=== PATIENT | male | born 1975 | race Caucasian/White ===

== ENCOUNTER 2021-10-25 12:56 | Emergency (ER) | payer SELFPAY ==
[2021-10-25] MEDS ORDERED: Insulin Regular 300 UNITS/3 ML VIAL ONE (13:26)
[2021-10-25 13:57] LABS: Actual Bicarbonate (HCO3v) 25 mEq/L (22-28); Analyzer IN Cardio ER; Base Excess -0.8 mEq/L (-2.0 to +3.0); Calcium, Ionized (venous) 1.12 mmol/L (1.16-1.32); Chloride (VBG) 97 mmol/L (98-106); Hemoglobin (Hb) 12.4 g/dL (13.1-17.2); Potassium (VBG) 4.19 mmol/L (3.70-5.30); Sodium 129.6 mmol/L (133-146); pH (venous) 7.35 (7.32-7.43)
[2021-10-25 14:01] LABS: #Eosinphils 0.2 thou/uL (0.0-0.7); #Lymphocytes 2.3 thou/uL (1.20-3.40); #Monocytes 0.3 thou/uL (0.11-0.59); #Neutrophils 2.6 thou/uL (1.40-6.50); %Basophils 0.9 % (0.0-1.0); %Eosinophils 4.3 % (0.0-10.0); %Lymphocytes 42.4 % (21.0-51.0); %Monocytes 5.4 % (0.0-10.0); Hemoglobin 11.3 g/dL (14.0-18.0); Mean Corpuscular Volume 96.8 fL (78.0-98.0); Mean Platelet Volume 7.4 fL (7.4-10.4); Platelet Count 237 thou/uL (130-400); Red Blood Cell (RBC) Count 3.44 mill/uL (4.70-6.10); White Blood Cell (WBC) Count 5.5 thou/uL (4.8-10.8)
[2021-10-25 14:22] LABS: ALT (SGPT) 20 U/L (8-55); AST (SGOT) 11 U/L (5-34); Albumin 3.4 g/dL (3.5-5.0); Alkaline Phosphatase 42 U/L (40-110); Anion Gap 9 mmol/L (10-20); BUN (Urea Nitrogen) 12 mg/dL (8.9-20.6); Bilirubin, Total 0.6 mg/dL (0.2-1.2); Calc. Creatinine Clearance 0 mL/min (70-130); Calcium 8.4 mg/dL (7.8-10.44); Carbon Dioxide 26 mmol/L (22-29); Chloride 98 mmol/L (98-107); Estimated GFR 116; Globulin 2.2 g/dL (2.4-3.5); Glucose 293 mg/dL (70-105); Potassium 4.3 mmol/L (3.5-5.1); Protein, Total 5.6 g/dL (6.0-8.3); Sodium 129 mmol/L (136-145)
== END 2021-10-25 14:25 | disposition home or self-care (01) ==
LOC: ERS 12:56
DX: R19.7 Diarrhea, unspecified (principal); E11.65 Type 2 diabetes mellitus with hyperglycemia; I10 Essential (primary) hypertension; E78.5 Hyperlipidemia, unspecified; F17.210 Nicotine dependence, cigarettes, uncomplicated; Z79.4 Long term (current) use of insulin; Z79.899 Other long term (current) drug therapy
CPT/HCPCS: 36415; 36416; 80053; 82805; 85025; 96361; 96374; J1815

== ENCOUNTER 2022-02-07 14:59 | Inpatient (IN) | payer SELFPAY ==
[2022-02-07] MEDS ORDERED: Guaifenesin DM 100-10/5 ML UDCUP PO PRN (17:23)
[2022-02-07] MEDS ORDERED: Ondansetron PF 4 MG/2 ML Vial IVP PRN (17:23)
[2022-02-07] MEDS ORDERED: Acetaminophen 325 MG TAB PO PRN (17:23)
[2022-02-07 17:24] VITALS: BMI 14.7
[2022-02-07] MEDS ORDERED: Loperamide HCl 2 MG CAP PO PRN (18:42)
[2022-02-07] MEDS ORDERED: Dextrose 50% Abboject 50 ML SYRINGE SLOW IVP PRN (18:42)
[2022-02-07] MEDS ORDERED: Bisacodyl 5 MG TAB PO PRN (18:42)
[2022-02-07] MEDS ORDERED: Bisacodyl 10 MG SUPP PR PRN (18:42)
[2022-02-07] MEDS ORDERED: Senokot S 8.6-50 MG TAB PO PRN (18:42)
[2022-02-07] MEDS ORDERED: Dextrose 5% in Water 1,000 ML IV PRN (18:42)
[2022-02-07] MEDS ORDERED: hydrALAZINE 20 MG/ML VIAL SLOW IVP PRN (18:54)
[2022-02-07] MEDS: Famotidine 20 MG TAB PO SCH (21:05)
[2022-02-07] MEDS: Nicotine 21 MG PATCH TD SCH (21:05)
[2022-02-07] MEDS: Morphine 2 MG/ML VIAL SLOW IVP PRN (21:05)
[2022-02-07] MEDS: Sodium Chloride 0.9% 1,000 ML IV SCH (21:05)
[2022-02-07] MEDS: HumaLOG 300 UNITS/3 ML VIAL SC PRN (21:27)
[2022-02-08] MEDS: HYDROcodone/Acetaminophen 5/325 mg Tablet PO PRN ×3 (01:29→12:26)
[2022-02-08 01:40] LABS: Bilirubin Negative (Negative); Blood, Urine Trace (Negative); Clarity Clear (Clear); Glucose, Urine (Dipstick) Greater than 1000 mg/dL (Negative); Ketone, Urine 20 mg/dL (Negative); Leukocyte 500 Leu/uL (Negative); Nitrite 2+ (Negative); Protein, Urine (Dipstick) 20 mg/dL (Neg-Trace); Specific Gravity, Urine 1.047 (1.002-1.036); Squamous Epithelial None Seen HPF (0-3); Urobilinogen 3 mg/dL (Less than 2)
[2022-02-08 01:44] LABS: Bacteria/HPF 2+ HPF (None Seen)
[2022-02-08 01:46] LABS: Urine Culture Reflex Yes Yes
[2022-02-08] MEDS: Ondansetron PF 4 MG/2 ML Vial IVP PRN (04:17)
[2022-02-08] MEDS: Morphine 2 MG/ML VIAL SLOW IVP PRN (04:17)
[2022-02-08 05:36] LABS: #Basophils 0.1 thou/uL (0.0-0.2); #Eosinphils 0.1 thou/uL (0.0-0.7); #Lymphocytes 1.3 thou/uL (1.20-3.40); #Neutrophils 17.1 thou/uL (1.40-6.50); %Basophils 0.3 % (0.0-1.0); %Eosinophils 0.5 % (0.0-10.0); %Lymphocytes 6.8 % (21.0-51.0); %Monocytes 4.9 % (0.0-10.0); %Neutrophils 87.5 % (42.0-75.0); Hemoglobin 10.8 g/dL (14.0-18.0); Mean Corpuscular HGB CONC 31.7 g/dL (32.0-36.0); Mean Corpuscular Hemoglobin 30.8 pg (27.0-31.0); Mean Corpuscular Volume 97.3 fL (78.0-98.0); Platelet Count 501 thou/uL (130-400); RBC Distribution Width 11.9 % (11.5-14.5); Red Blood Cell (RBC) Count 3.49 mill/uL (4.70-6.10); White Blood Cell (WBC) Count 19.5 thou/uL (4.8-10.8)
[2022-02-08 05:39] LABS: INR-International Normal Ratio 1.2; PTT 46.2 sec (22.9-36.1); Prothrombin Time 15.5 sec (12.0-14.7)
[2022-02-08 05:49] LABS: Anion Gap 11 mmol/L (10-20); BUN (Urea Nitrogen) 7 mg/dL (8.9-20.6); Calc. Creatinine Clearance 108 mL/min (70-130); Calcium 8.8 mg/dL (7.8-10.44); Carbon Dioxide 30 mmol/L (22-29); Chloride 95 mmol/L (98-107); Estimated GFR 126; Glucose 160 mg/dL (70-105); Magnesium 1.5 mg/dL (1.6-2.6); Potassium 4.1 mmol/L (3.5-5.1); Sodium 132 mmol/L (136-145)
[2022-02-08 05:53] LABS: Hemoglobin A1c Greater than 14.0 % (4.0-6.0)
[2022-02-08] MEDS: Famotidine 20 MG TAB PO SCH ×2 (08:39→20:06)
[2022-02-08] MEDS: Enoxaparin Sodium 40 MG/0.4 ML SYRINGE SC SCH (08:39)
[2022-02-08] MEDS ORDERED: Magnesium 2 GM/50 ML(in water) 2 GM in Premix Bag 1 BAG IVPB SCH (09:00)
[2022-02-08 13:21] LABS: SARS-CoV-2 NAA Rapid Test Not Detected (NotDetected)
[2022-02-08] MEDS ORDERED: Magnevist 469MG/ML 20 ML VIAL ONE ×2 (13:23)
[2022-02-08] MEDS: Sodium Chloride 0.9% 1,000 ML IV SCH (16:12)
[2022-02-08] MEDS: glyBURIDE 5 MG TAB PO SCH (16:12)
[2022-02-08] MEDS: Gabapentin 300 MG CAP PO SCH (20:06)
[2022-02-08] MEDS: Nicotine 21 MG PATCH TD SCH (20:06)
[2022-02-09] MEDS: HYDROcodone/Acetaminophen 5/325 mg Tablet PO PRN ×2 (04:00→20:41)
[2022-02-09] MEDS: HumaLOG 300 UNITS/3 ML VIAL SC PRN ×3 (05:46→15:58)
[2022-02-09] MEDS: glyBURIDE 5 MG TAB PO SCH ×2 (07:25→15:57)
[2022-02-09] MEDS: Enoxaparin Sodium 40 MG/0.4 ML SYRINGE SC SCH (08:40)
[2022-02-09] MEDS: Famotidine 20 MG TAB PO SCH ×2 (08:40→20:42)
[2022-02-09] MEDS: Sodium Chloride 0.9% 1,000 ML IV SCH (08:41)
[2022-02-09] MEDS ORDERED: Phytonadione 5 MG TAB PO SCH (09:30)
[2022-02-09 09:48] LABS: ALT (SGPT) 18 U/L (8-55); AST (SGOT) 32 U/L (5-34); Albumin 2.3 g/dL (3.5-5.0); Alkaline Phosphatase 159 U/L (40-110); Anion Gap 11 mmol/L (10-20); BUN (Urea Nitrogen) 7 mg/dL (8.9-20.6); Bilirubin, Total 0.3 mg/dL (0.2-1.2); Calc. Creatinine Clearance 98 mL/min (70-130); Calcium 8.2 mg/dL (7.8-10.44); Carbon Dioxide 29 mmol/L (22-29); Chloride 94 mmol/L (98-107); Estimated GFR 122; Globulin 3.9 g/dL (2.4-3.5); Glucose 240 mg/dL (70-105); Potassium 4.1 mmol/L (3.5-5.1); Protein, Total 6.2 g/dL (6.0-8.3); Sodium 130 mmol/L (136-145)
[2022-02-09] MEDS: Cefepime 1 GM in Sodium Chloride 0.9% 100 ML IVPB SCH ×2 (10:14→22:23)
[2022-02-09 12:00] LABS: Hemoglobin 9.8 g/dL (14.0-18.0); Lymphocytes 6 % (21-51); MDiff Complete? YES; Mean Corpuscular HGB CONC 30.2 g/dL (32.0-36.0); Mean Corpuscular Hemoglobin 29.5 pg (27.0-31.0); Mean Corpuscular Volume 97.7 fL (78.0-98.0); Mean Platelet Volume 7.2 fL (7.4-10.4); Monocytes 2 % (0-10); Neutrophil 92 % (42-75); Platelet Count 507 thou/uL (130-400); Platelet Morphology Comment Appears Increased; RBC Distribution Width 11.9 % (11.5-14.5); RBC Morphology Normal; Red Blood Cell (RBC) Count 3.33 mill/uL (4.70-6.10); White Blood Cell (WBC) Count 22.5 thou/uL (4.8-10.8)
[2022-02-09] MEDS ORDERED: Heparin 1,000 UNITS/ML VIAL ONE (12:15)
[2022-02-09] MEDS: traMADol HCl 50 MG TAB PO PRN (14:26)
[2022-02-09] MEDS: Ondansetron PF 4 MG/2 ML Vial IVP PRN (19:35)
[2022-02-09] MEDS: Nicotine 21 MG PATCH TD SCH (19:36)
[2022-02-09] MEDS: Gabapentin 300 MG CAP PO SCH (20:40)
[2022-02-09] MEDS ORDERED: Vancomycin 1 GM in Premix Bag 1 BAG IVPB SCH (21:00)
[2022-02-09] MEDS: Vancomycin HCl 750 MG in Sodium Chloride 0.9% 250 ML 250 ML IVPB SCH (21:09)
[2022-02-10] MEDS: Morphine 2 MG/ML VIAL SLOW IVP PRN (04:29)
[2022-02-10] MEDS: Sodium Chloride 0.9% 1,000 ML IV SCH ×2 (04:33→20:15)
[2022-02-10] MEDS: glyBURIDE 5 MG TAB PO SCH ×2 (07:47→15:49)
[2022-02-10 09:09] LABS: #Basophils 0.1 thou/uL (0.0-0.2); #Eosinphils 0.1 thou/uL (0.0-0.7); #Lymphocytes 1.2 thou/uL (1.20-3.40); #Monocytes 1.2 thou/uL (0.11-0.59); #Neutrophils 20.9 thou/uL (1.40-6.50); %Basophils 0.3 % (0.0-1.0); %Eosinophils 0.4 % (0.0-10.0); %Lymphocytes 5.2 % (21.0-51.0); %Monocytes 4.9 % (0.0-10.0); %Neutrophils 89.2 % (42.0-75.0); Mean Corpuscular HGB CONC 31.7 g/dL (32.0-36.0); Mean Corpuscular Hemoglobin 31.1 pg (27.0-31.0); Platelet Count 478 thou/uL (130-400); RBC Distribution Width 11.8 % (11.5-14.5); Red Blood Cell (RBC) Count 3.23 mill/uL (4.70-6.10); White Blood Cell (WBC) Count 23.4 thou/uL (4.8-10.8)
[2022-02-10 09:28] LABS: ALT (SGPT) 18 U/L (8-55); AST (SGOT) 21 U/L (5-34); Albumin 2.2 g/dL (3.5-5.0); Alkaline Phosphatase 144 U/L (40-110); Anion Gap 9 mmol/L (10-20); BUN (Urea Nitrogen) 8 mg/dL (8.9-20.6); Bilirubin, Total 0.5 mg/dL (0.2-1.2); Calc. Creatinine Clearance 104 mL/min (70-130); Calcium 8.3 mg/dL (7.8-10.44); Carbon Dioxide 31 mmol/L (22-29); Chloride 96 mmol/L (98-107); Estimated GFR 124; Globulin 3.9 g/dL (2.4-3.5); Glucose 126 mg/dL (70-105); Potassium 4.2 mmol/L (3.5-5.1); Protein, Total 6.1 g/dL (6.0-8.3); Sodium 132 mmol/L (136-145)
[2022-02-10] MEDS ORDERED: Lidocaine 1% (PF) 30 ML VIAL FS SCH (10:00)
[2022-02-10] MEDS ORDERED: EPINEPHrine 1 MG/10 ML Abboject SYRINGE FS SCH (10:15)
[2022-02-10] MEDS: Vancomycin HCl 750 MG in Sodium Chloride 0.9% 250 ML 250 ML IVPB SCH (10:30)
[2022-02-10] MEDS: Cefepime 1 GM in Sodium Chloride 0.9% 100 ML IVPB SCH (11:32)
[2022-02-10] MEDS: Famotidine 20 MG TAB PO SCH ×2 (14:07→20:14)
[2022-02-10] MEDS: Enoxaparin Sodium 30 MG/0.3 ML SYRINGE SC SCH (14:07)
[2022-02-10] MEDS: HumaLOG 300 UNITS/3 ML VIAL SC PRN (16:35)
[2022-02-10] MEDS: HYDROcodone/Acetaminophen 5/325 mg Tablet PO PRN ×2 (17:51→22:00)
[2022-02-10] MEDS: Gabapentin 300 MG CAP PO SCH (20:13)
[2022-02-10] MEDS: Nicotine 21 MG PATCH TD SCH (20:14)
[2022-02-10] MEDS: CEFAZOLIN 2 GM in Sodium Chloride 0.9% 100 ML IVPB SCH (22:01)
[2022-02-10 23:32] LABS: HIV (1/2) Antibody/Antigen Non-Reactive (NonReactive); HIV 1/2 INDEX 0.08 S/CO (<1.00)
[2022-02-11 00:35] LABS: Campy jejuni + coli by PCR Negative (Negative); STEC Shiga Toxin 1+2 Negative (Negative); Salmonella spp. by PCR Negative (Negative); Shigella spp + EIEC by PCR Negative (Negative)
[2022-02-11 05:28] LABS: Band 31 % (5-11); Hemoglobin 9.7 g/dL (14.0-18.0); Hypochromia SLIGHT = 6-15 cells (100X) (0-5/hpf); Lymphocytes 8 % (21-51); MDiff Complete? YES; Mean Corpuscular Hemoglobin 30.6 pg (27.0-31.0); Mean Corpuscular Volume 98.7 fL (78.0-98.0); Mean Platelet Volume 7.3 fL (7.4-10.4); Monocytes 4 % (0-10); Neutrophil 56 % (42-75); Platelet Count 514 thou/uL (130-400); Platelet Morphology Comment Appears Adequate; RBC Distribution Width 11.9 % (11.5-14.5); Reactive Lymphocytes 1 % (0-10); Red Blood Cell (RBC) Count 3.17 mill/uL (4.70-6.10); White Blood Cell (WBC) Count 24.1 thou/uL (4.8-10.8)
[2022-02-11 05:36] LABS: Anion Gap 11 mmol/L (10-20); BUN (Urea Nitrogen) 12 mg/dL (8.9-20.6); Calc. Creatinine Clearance 87 mL/min (70-130); Carbon Dioxide 28 mmol/L (22-29); Chloride 95 mmol/L (98-107); Estimated GFR 118; Glucose 345 mg/dL (70-105); Potassium 4.5 mmol/L (3.5-5.1); Sodium 129 mmol/L (136-145)
[2022-02-11] MEDS: CEFAZOLIN 2 GM in Sodium Chloride 0.9% 100 ML IVPB SCH ×3 (05:45→21:32)
[2022-02-11] MEDS: HYDROcodone/Acetaminophen 5/325 mg Tablet PO PRN ×2 (05:47→20:31)
[2022-02-11] MEDS: Sodium Chloride 0.9% 1,000 ML IV SCH ×3 (05:49→19:07)
[2022-02-11] MEDS: HumaLOG 300 UNITS/3 ML VIAL SC PRN ×3 (06:20→21:32)
[2022-02-11] MEDS: Famotidine 20 MG TAB PO SCH ×2 (08:14→20:30)
[2022-02-11] MEDS: Enoxaparin Sodium 30 MG/0.3 ML SYRINGE SC SCH (08:14)
[2022-02-11] MEDS: glyBURIDE 5 MG TAB PO SCH ×2 (08:14→16:42)
[2022-02-11 08:34] LABS: Vancomycin, Trough 2.2 ug/mL
[2022-02-11] MEDS ORDERED: Bupivacaine 0.25% HCL 30 ML VIAL ONE ×2 (12:20→13:47)
[2022-02-11] MEDS ORDERED: EPINEPHrine 1 MG/ML AMP ONE ×2 (12:20→13:47)
[2022-02-11] MEDS ORDERED: fentaNYL Citrate/PF 100 MCG/2 ML SYRINGE ONE (14:00)
[2022-02-11] MEDS ORDERED: CEFAZOLIN 2 GM VIAL ONE (14:02)
[2022-02-11] MEDS ORDERED: Sodium Chloride 0.9% 100 ML ONE (14:02)
[2022-02-11] MEDS ORDERED: PHENYLEPHRINE-NS 100 MCG/ML 10 ML SYRINGE ONE (14:19)
[2022-02-11] MEDS ORDERED: PROPOFOL 200 MG/20 ML VIAL ONE (14:19)
[2022-02-11] MEDS ORDERED: HYDROmorphone 2 MG/ML VIAL SLOW IVP PRN (14:43)
[2022-02-11] MEDS ORDERED: Ketorolac Tromethamine 30 MG/ML VIAL IVP PRN (14:43)
[2022-02-11] MEDS ORDERED: Promethazine HCl 25 MG/ML VIAL IVPB PRN (14:43)
[2022-02-11] MEDS ORDERED: Promethazine HCl 25 MG/ML VIAL IM PRN (14:43)
[2022-02-11] MEDS ORDERED: Ondansetron HCl/PF 4 MG/2 ML Vial IVP PRN (14:43)
[2022-02-11] MEDS ORDERED: Fentanyl 100 MCG/2 ML VIAL ONE ×2 (15:02→15:36)
[2022-02-11] MEDS: Morphine 2 MG/ML VIAL SLOW IVP PRN (16:49)
[2022-02-11] MEDS: Nicotine 21 MG PATCH TD SCH (20:30)
[2022-02-11] MEDS: Gabapentin 300 MG CAP PO SCH (20:31)
[2022-02-12 04:54] LABS: #Eosinphils 0.1 thou/uL (0.0-0.7); #Lymphocytes 1.7 thou/uL (1.20-3.40); #Monocytes 1.1 thou/uL (0.11-0.59); #Neutrophils 14.9 thou/uL (1.40-6.50); %Basophils 0.3 % (0.0-1.0); %Eosinophils 0.6 % (0.0-10.0); %Lymphocytes 9.5 % (21.0-51.0); %Monocytes 6.3 % (0.0-10.0); %Neutrophils 83.3 % (42.0-75.0); Hemoglobin 9.8 g/dL (14.0-18.0); Mean Corpuscular HGB CONC 31.1 g/dL (32.0-36.0); Mean Corpuscular Hemoglobin 30.2 pg (27.0-31.0); Mean Corpuscular Volume 97.1 fL (78.0-98.0); Platelet Count 567 thou/uL (130-400); RBC Distribution Width 11.8 % (11.5-14.5); Red Blood Cell (RBC) Count 3.23 mill/uL (4.70-6.10); White Blood Cell (WBC) Count 17.9 thou/uL (4.8-10.8)
[2022-02-12] MEDS: CEFAZOLIN 2 GM in Sodium Chloride 0.9% 100 ML IVPB SCH ×3 (05:17→20:58)
[2022-02-12] MEDS: Sodium Chloride 0.9% 1,000 ML IV SCH ×2 (05:17→16:52)
[2022-02-12 05:56] LABS: Anion Gap 9 mmol/L (10-20); BUN (Urea Nitrogen) 9 mg/dL (8.9-20.6); Calc. Creatinine Clearance 102 mL/min (70-130); Calcium 7.8 mg/dL (7.8-10.44); Carbon Dioxide 29 mmol/L (22-29); Chloride 96 mmol/L (98-107); Estimated GFR 124; Glucose 213 mg/dL (70-105); Potassium 4.3 mmol/L (3.5-5.1); Sodium 130 mmol/L (136-145)
[2022-02-12] MEDS: HumaLOG 300 UNITS/3 ML VIAL SC PRN ×3 (06:11→20:55)
[2022-02-12] MEDS: glyBURIDE 5 MG TAB PO SCH ×2 (08:07→16:49)
[2022-02-12] MEDS: Enoxaparin Sodium 30 MG/0.3 ML SYRINGE SC SCH (08:08)
[2022-02-12] MEDS: Famotidine 20 MG TAB PO SCH ×2 (08:08→20:49)
[2022-02-12] MEDS: Morphine 2 MG/ML VIAL SLOW IVP PRN (09:22)
[2022-02-12] MEDS: HYDROcodone/Acetaminophen 5/325 mg Tablet PO PRN ×2 (11:15→20:50)
[2022-02-12] MEDS: traMADol HCl 50 MG TAB PO PRN (12:54)
[2022-02-12] MEDS: Loperamide HCl 2 MG CAP PO PRN (18:56)
[2022-02-12] MEDS: Gabapentin 300 MG CAP PO SCH (20:49)
[2022-02-12] MEDS: Nicotine 21 MG PATCH TD SCH (20:51)
[2022-02-13] MEDS: Sodium Chloride 0.9% 1,000 ML IV SCH ×3 (04:42→20:08)
[2022-02-13] MEDS: CEFAZOLIN 2 GM in Sodium Chloride 0.9% 100 ML IVPB SCH ×3 (05:28→21:59)
[2022-02-13 05:34] LABS: #Eosinphils 0.1 thou/uL (0.0-0.7); #Monocytes 1.3 thou/uL (0.11-0.59); #Neutrophils 12.1 thou/uL (1.40-6.50); %Basophils 0.1 % (0.0-1.0); %Eosinophils 0.9 % (0.0-10.0); %Lymphocytes 12.9 % (21.0-51.0); %Monocytes 8.2 % (0.0-10.0); %Neutrophils 77.9 % (42.0-75.0); Hemoglobin 9.4 g/dL (14.0-18.0); Mean Corpuscular HGB CONC 31.9 g/dL (32.0-36.0); Mean Corpuscular Hemoglobin 30.7 pg (27.0-31.0); Mean Corpuscular Volume 96.1 fL (78.0-98.0); Mean Platelet Volume 6.8 fL (7.4-10.4); Platelet Count 547 thou/uL (130-400); RBC Distribution Width 11.7 % (11.5-14.5); Red Blood Cell (RBC) Count 3.06 mill/uL (4.70-6.10); White Blood Cell (WBC) Count 15.5 thou/uL (4.8-10.8)
[2022-02-13] MEDS: Famotidine 20 MG TAB PO SCH ×2 (08:22→20:07)
[2022-02-13] MEDS: Enoxaparin Sodium 30 MG/0.3 ML SYRINGE SC SCH (08:22)
[2022-02-13] MEDS: glyBURIDE 5 MG TAB PO SCH ×2 (08:22→16:11)
[2022-02-13 09:58] LABS: Anion Gap 10 mmol/L (10-20); BUN (Urea Nitrogen) 6 mg/dL (8.9-20.6); Calc. Creatinine Clearance 115 mL/min (70-130); Calcium 7.8 mg/dL (7.8-10.44); Carbon Dioxide 29 mmol/L (22-29); Chloride 98 mmol/L (98-107); Estimated GFR 128; Glucose 115 mg/dL (70-105); Sodium 133 mmol/L (136-145)
[2022-02-13] MEDS: traMADol HCl 50 MG TAB PO PRN ×2 (13:35→18:16)
[2022-02-13] MEDS ORDERED: Lidocaine 1% (PF) 30 ML VIAL IJ SCH (13:45)
[2022-02-13] MEDS ORDERED: Bupivacaine PF 0.5% 30 ML VIAL FS SCH (13:45)
[2022-02-13] MEDS ORDERED: EPINEPHrine 1 MG/ML AMP IVP SCH (13:45)
[2022-02-13] MEDS ORDERED: EPINEPHrine 1 MG/10 ML Abboject SYRINGE IVP SCH (14:00)
[2022-02-13] MEDS: Gabapentin 300 MG CAP PO SCH (20:07)
[2022-02-13] MEDS: Nicotine 21 MG PATCH TD SCH (20:07)
[2022-02-13] MEDS: Morphine 2 MG/ML VIAL SLOW IVP PRN (20:13)
[2022-02-13] MEDS: HumaLOG 300 UNITS/3 ML VIAL SC PRN (21:58)
[2022-02-14] MEDS: CEFAZOLIN 2 GM in Sodium Chloride 0.9% 100 ML IVPB SCH ×3 (05:09→22:35)
[2022-02-14 05:53] LABS: #Eosinphils 0.1 thou/uL (0.0-0.7); #Lymphocytes 2.6 thou/uL (1.20-3.40); #Monocytes 1.1 thou/uL (0.11-0.59); #Neutrophils 10.9 thou/uL (1.40-6.50); %Basophils 0.2 % (0.0-1.0); %Eosinophils 0.8 % (0.0-10.0); %Lymphocytes 17.7 % (21.0-51.0); %Monocytes 7.7 % (0.0-10.0); %Neutrophils 73.7 % (42.0-75.0); Hemoglobin 9.2 g/dL (14.0-18.0); Mean Corpuscular HGB CONC 31.5 g/dL (32.0-36.0); Mean Corpuscular Hemoglobin 30.7 pg (27.0-31.0); Mean Corpuscular Volume 97.4 fL (78.0-98.0); Platelet Count 635 thou/uL (130-400); RBC Distribution Width 11.9 % (11.5-14.5); White Blood Cell (WBC) Count 14.8 thou/uL (4.8-10.8)
[2022-02-14 06:13] LABS: Anion Gap 6 mmol/L (10-20); BUN (Urea Nitrogen) 12 mg/dL (8.9-20.6); Calc. Creatinine Clearance 97 mL/min (70-130); Calcium 7.7 mg/dL (7.8-10.44); Carbon Dioxide 30 mmol/L (22-29); Chloride 99 mmol/L (98-107); Estimated GFR 122; Glucose 286 mg/dL (70-105); Potassium 4.4 mmol/L (3.5-5.1); Sodium 131 mmol/L (136-145)
[2022-02-14] MEDS ORDERED: PROPOFOL 200 MG/20 ML VIAL ONE (08:29)
[2022-02-14 09:13] LABS: QuantiFERON-TB Gold Plus Indeterminate (Negative)
[2022-02-14] MEDS: traMADol HCl 50 MG TAB PO PRN (09:48)
[2022-02-14] MEDS: Famotidine 20 MG TAB PO SCH ×2 (09:48→20:18)
[2022-02-14] MEDS: glyBURIDE 5 MG TAB PO SCH ×2 (09:48→16:16)
[2022-02-14] MEDS: Enoxaparin Sodium 30 MG/0.3 ML SYRINGE SC SCH (09:49)
[2022-02-14] MEDS: Sodium Chloride 0.9% 1,000 ML IV SCH ×2 (09:50→20:17)
[2022-02-14] MEDS: HumaLOG 300 UNITS/3 ML VIAL SC PRN ×3 (11:18→20:27)
[2022-02-14] MEDS: Nicotine 21 MG PATCH TD SCH (20:18)
[2022-02-14] MEDS: Gabapentin 300 MG CAP PO SCH (20:18)
[2022-02-15] MEDS: Sodium Chloride 0.9% 1,000 ML IV SCH ×3 (05:43→20:07)
[2022-02-15] MEDS: CEFAZOLIN 2 GM in Sodium Chloride 0.9% 100 ML IVPB SCH ×3 (05:43→21:27)
[2022-02-15] MEDS: HumaLOG 300 UNITS/3 ML VIAL SC PRN ×3 (05:44→16:17)
[2022-02-15 05:49] LABS: #Eosinphils 0.1 thou/uL (0.0-0.7); #Monocytes 0.9 thou/uL (0.11-0.59); #Neutrophils 10.5 thou/uL (1.40-6.50); %Basophils 0.3 % (0.0-1.0); %Monocytes 6.6 % (0.0-10.0); %Neutrophils 77.3 % (42.0-75.0); Hemoglobin 9.3 g/dL (14.0-18.0); Mean Corpuscular HGB CONC 31.4 g/dL (32.0-36.0); Mean Corpuscular Hemoglobin 30.3 pg (27.0-31.0); Mean Corpuscular Volume 96.5 fL (78.0-98.0); Mean Platelet Volume 6.6 fL (7.4-10.4); Platelet Count 722 thou/uL (130-400); RBC Distribution Width 11.9 % (11.5-14.5); Red Blood Cell (RBC) Count 3.08 mill/uL (4.70-6.10); White Blood Cell (WBC) Count 13.5 thou/uL (4.8-10.8)
[2022-02-15 06:12] LABS: Anion Gap 6 mmol/L (10-20); BUN (Urea Nitrogen) 8 mg/dL (8.9-20.6); Calc. Creatinine Clearance 104 mL/min (70-130); Calcium 7.7 mg/dL (7.8-10.44); Carbon Dioxide 29 mmol/L (22-29); Chloride 97 mmol/L (98-107); Estimated GFR 124; Glucose 347 mg/dL (70-105); Potassium 4.2 mmol/L (3.5-5.1); Sodium 128 mmol/L (136-145)
[2022-02-15 06:30] LABS: Hep C IgG Ab Non-Reactive (NonReactive); Hep C Index 0.27 S/CO (0-0.79)
[2022-02-15] MEDS: Famotidine 20 MG TAB PO SCH ×2 (08:27→20:07)
[2022-02-15] MEDS: glyBURIDE 5 MG TAB PO SCH ×2 (08:27→16:16)
[2022-02-15] MEDS: Enoxaparin Sodium 30 MG/0.3 ML SYRINGE SC SCH (08:27)
[2022-02-15] MEDS: HYDROcodone/Acetaminophen 5/325 mg Tablet PO PRN ×2 (08:34→23:14)
[2022-02-15] MEDS: Loperamide HCl 2 MG CAP PO PRN ×4 (14:32→23:14)
[2022-02-15] MEDS: traMADol HCl 50 MG TAB PO PRN (16:16)
[2022-02-15] MEDS: Nicotine 21 MG PATCH TD SCH (20:06)
[2022-02-15] MEDS: Gabapentin 300 MG CAP PO SCH (20:07)
[2022-02-16] MEDS: Saccharomyces boulardii 250 MG CAP PO SCH ×2 (03:18→09:01)
[2022-02-16] MEDS: CEFAZOLIN 2 GM in Sodium Chloride 0.9% 100 ML IVPB SCH ×3 (05:16→21:28)
[2022-02-16] MEDS: Sodium Chloride 0.9% 1,000 ML IV SCH ×2 (05:17→16:03)
[2022-02-16] MEDS: HumaLOG 300 UNITS/3 ML VIAL SC PRN ×3 (05:20→18:08)
[2022-02-16] MEDS: glyBURIDE 5 MG TAB PO SCH ×2 (09:00→16:02)
[2022-02-16] MEDS: Famotidine 20 MG TAB PO SCH ×2 (09:01→21:28)
[2022-02-16] MEDS: Enoxaparin Sodium 30 MG/0.3 ML SYRINGE SC SCH (09:01)
[2022-02-16 09:39] LABS: #Eosinphils 0.1 thou/uL (0.0-0.7); #Monocytes 0.7 thou/uL (0.11-0.59); #Neutrophils 7.9 thou/uL (1.40-6.50); %Basophils 0.4 % (0.0-1.0); %Eosinophils 1.2 % (0.0-10.0); %Lymphocytes 18.2 % (21.0-51.0); %Monocytes 6.3 % (0.0-10.0); %Neutrophils 73.9 % (42.0-75.0); Hemoglobin 9.7 g/dL (14.0-18.0); Mean Corpuscular Hemoglobin 30.1 pg (27.0-31.0); Mean Corpuscular Volume 96.8 fL (78.0-98.0); Mean Platelet Volume 6.2 fL (7.4-10.4); Platelet Count 731 thou/uL (130-400); RBC Distribution Width 11.9 % (11.5-14.5); Red Blood Cell (RBC) Count 3.21 mill/uL (4.70-6.10); White Blood Cell (WBC) Count 10.7 thou/uL (4.8-10.8)
[2022-02-16 10:02] LABS: Anion Gap 8 mmol/L (10-20); BUN (Urea Nitrogen) Less than 4 mg/dL (8.9-20.6); Calc. Creatinine Clearance 106 mL/min (70-130); Calcium 7.8 mg/dL (7.8-10.44); Carbon Dioxide 33 mmol/L (22-29); Chloride 96 mmol/L (98-107); Estimated GFR 125; Glucose 260 mg/dL (70-105); Potassium 3.9 mmol/L (3.5-5.1); Sodium 133 mmol/L (136-145)
[2022-02-16] MEDS: Loperamide HCl 2 MG CAP PO PRN ×6 (10:13→21:32)
[2022-02-16] MEDS: Morphine 2 MG/ML VIAL SLOW IVP PRN (10:13)
[2022-02-16] MEDS: Gabapentin 300 MG CAP PO SCH (21:28)
[2022-02-16] MEDS: Nicotine 21 MG PATCH TD SCH (21:28)
[2022-02-16] MEDS ORDERED: Melatonin 3 MG TAB PO SCH (23:00)
[2022-02-17] MEDS: Morphine 2 MG/ML VIAL SLOW IVP PRN ×2 (00:15→11:32)
[2022-02-17] MEDS: Sodium Chloride 0.9% 1,000 ML IV SCH ×3 (02:00→22:42)
[2022-02-17] MEDS: CEFAZOLIN 2 GM in Sodium Chloride 0.9% 100 ML IVPB SCH ×3 (05:11→22:42)
[2022-02-17] MEDS: HumaLOG 300 UNITS/3 ML VIAL SC PRN ×3 (05:13→16:22)
[2022-02-17 06:02] LABS: #Basophils 0.1 thou/uL (0.0-0.2); #Eosinphils 0.1 thou/uL (0.0-0.7); #Lymphocytes 2.2 thou/uL (1.20-3.40); #Monocytes 0.8 thou/uL (0.11-0.59); #Neutrophils 9.1 thou/uL (1.40-6.50); %Basophils 0.8 % (0.0-1.0); %Eosinophils 0.9 % (0.0-10.0); %Lymphocytes 17.6 % (21.0-51.0); %Monocytes 6.5 % (0.0-10.0); %Neutrophils 74.2 % (42.0-75.0); Hemoglobin 8.8 g/dL (14.0-18.0); Mean Corpuscular HGB CONC 30.9 g/dL (32.0-36.0); Mean Corpuscular Hemoglobin 29.8 pg (27.0-31.0); Mean Corpuscular Volume 96.5 fL (78.0-98.0); Mean Platelet Volume 6.7 fL (7.4-10.4); Platelet Count 751 thou/uL (130-400); RBC Distribution Width 12.2 % (11.5-14.5); Red Blood Cell (RBC) Count 2.94 mill/uL (4.70-6.10); White Blood Cell (WBC) Count 12.2 thou/uL (4.8-10.8)
[2022-02-17 06:20] LABS: Anion Gap 9 mmol/L (10-20); BUN (Urea Nitrogen) Less than 4 mg/dL (8.9-20.6); Calc. Creatinine Clearance 102 mL/min (70-130); Carbon Dioxide 29 mmol/L (22-29); Chloride 99 mmol/L (98-107); Estimated GFR 124; Glucose 380 mg/dL (70-105); Potassium 3.9 mmol/L (3.5-5.1); Sodium 133 mmol/L (136-145)
[2022-02-17] MEDS: glyBURIDE 5 MG TAB PO SCH ×2 (07:37→16:22)
[2022-02-17] MEDS: Enoxaparin Sodium 30 MG/0.3 ML SYRINGE SC SCH (09:07)
[2022-02-17] MEDS: Saccharomyces boulardii 250 MG CAP PO SCH (09:07)
[2022-02-17] MEDS: Famotidine 20 MG TAB PO SCH ×2 (09:07→20:29)
[2022-02-17] MEDS: traMADol HCl 50 MG TAB PO PRN ×2 (09:12→18:01)
[2022-02-17 15:14] LABS: Alb/Glob Ratio 0.5 (0.7-1.7); Albumin 1.7 g/dL (2.9-4.4); Alpha-1-Globulin 0.4 g/dL (0.0-0.4); Alpha-2-Globulin 0.8 g/dL (0.4-1.0); Beta-Globulin 0.9 g/dL (0.7-1.3); Gamma-Globulin 1.8 g/dL (0.4-1.8); IgA - Total IgA (Sendout) 498 mg/dL (90-386); Immunoglobulin - G (Sendout) 2048 mg/dL (603-1613); Immunoglobulin - M (Sendout) 42 mg/dL (20-172); M-Spike Not Observed g/dL (Not Observed)
[2022-02-17] MEDS: Gabapentin 300 MG CAP PO SCH (20:29)
[2022-02-17] MEDS: Nicotine 21 MG PATCH TD SCH (20:30)
[2022-02-17] MEDS: HYDROcodone/Acetaminophen 5/325 mg Tablet PO PRN (20:35)
[2022-02-17] MEDS: Loperamide HCl 2 MG CAP PO PRN (20:35)
[2022-02-18] MEDS: CEFAZOLIN 2 GM in Sodium Chloride 0.9% 100 ML IVPB SCH ×3 (05:32→21:31)
[2022-02-18 05:42] LABS: Anion Gap 8 mmol/L (10-20); BUN (Urea Nitrogen) Less than 4 mg/dL (8.9-20.6); Calc. Creatinine Clearance 110 mL/min (70-130); Carbon Dioxide 28 mmol/L (22-29); Chloride 100 mmol/L (98-107); Potassium 3.9 mmol/L (3.5-5.1); Sodium 132 mmol/L (136-145)
[2022-02-18 05:43] LABS: Calcium 7.9 mg/dL (7.8-10.44); Estimated GFR 127; Glucose 228 mg/dL (70-105)
[2022-02-18] MEDS: HumaLOG 300 UNITS/3 ML VIAL SC PRN ×4 (06:06→21:31)
[2022-02-18 07:03] LABS: #Basophils 0.1 thou/uL (0.0-0.2); #Eosinphils 0.1 thou/uL (0.0-0.7); #Lymphocytes 2.2 thou/uL (1.20-3.40); #Monocytes 0.7 thou/uL (0.11-0.59); #Neutrophils 7.7 thou/uL (1.40-6.50); %Basophils 0.8 % (0.0-1.0); %Eosinophils 1.1 % (0.0-10.0); %Lymphocytes 20.6 % (21.0-51.0); %Monocytes 6.1 % (0.0-10.0); %Neutrophils 71.3 % (42.0-75.0); Hemoglobin 9.4 g/dL (14.0-18.0); Mean Corpuscular HGB CONC 31.8 g/dL (32.0-36.0); Mean Corpuscular Hemoglobin 30.6 pg (27.0-31.0); Mean Corpuscular Volume 96.3 fl (78.0-98.0); Mean Platelet Volume 6.4 fL (7.4-10.4); Platelet Count 718 thou/uL (130-400); RBC Distribution Width 12.7 % (11.5-14.5); Red Blood Cell (RBC) Count 3.05 mill/uL (4.70-6.10); White Blood Cell (WBC) Count 10.7 thou/uL (4.8-10.8)
[2022-02-18] MEDS ORDERED: traMADol HCl 50 MG TAB PO PRN (08:35)
[2022-02-18] MEDS: Enoxaparin Sodium 30 MG/0.3 ML SYRINGE SC SCH (08:55)
[2022-02-18] MEDS: glyBURIDE 5 MG TAB PO SCH ×2 (08:55→17:34)
[2022-02-18] MEDS: Famotidine 20 MG TAB PO SCH ×2 (08:55→21:30)
[2022-02-18] MEDS: Saccharomyces boulardii 250 MG CAP PO SCH (08:55)
[2022-02-18] MEDS: Sodium Chloride 0.9% 1,000 ML IV SCH ×2 (08:55→17:33)
[2022-02-18] MEDS: HYDROcodone/Acetaminophen 5/325 mg Tablet PO PRN ×3 (11:01→21:31)
[2022-02-18] MEDS: Loperamide HCl 2 MG CAP PO PRN ×3 (13:09→21:30)
[2022-02-18 15:14] LABS: M-Spike,% Not Observed % (Not Observed)
[2022-02-18] MEDS: Nicotine 21 MG PATCH TD SCH (21:30)
[2022-02-18] MEDS: Gabapentin 300 MG CAP PO SCH (21:30)
[2022-02-19] MEDS: CEFAZOLIN 2 GM in Sodium Chloride 0.9% 100 ML IVPB SCH ×3 (04:51→21:04)
[2022-02-19] MEDS: Sodium Chloride 0.9% 1,000 ML IV SCH ×3 (04:51→22:59)
[2022-02-19] MEDS: Loperamide HCl 2 MG CAP PO PRN ×3 (04:51→22:59)
[2022-02-19] MEDS: HYDROcodone/Acetaminophen 5/325 mg Tablet PO PRN ×4 (04:52→21:04)
[2022-02-19 05:31] LABS: #Basophils 0.1 thou/uL (0.0-0.2); #Eosinphils 0.1 thou/uL (0.0-0.7); #Lymphocytes 2.5 thou/uL (1.20-3.40); #Monocytes 0.7 thou/uL (0.11-0.59); #Neutrophils 7.7 thou/uL (1.40-6.50); %Basophils 0.9 % (0.0-1.0); %Lymphocytes 22.7 % (21.0-51.0); %Monocytes 6.5 % (0.0-10.0); %Neutrophils 68.9 % (42.0-75.0); Hemoglobin 8.9 g/dL (14.0-18.0); Mean Corpuscular HGB CONC 31.2 g/dL (32.0-36.0); Mean Corpuscular Volume 96.4 fl (78.0-98.0); Mean Platelet Volume 6.5 fL (7.4-10.4); Platelet Count 672 thou/uL (130-400); Red Blood Cell (RBC) Count 2.95 mill/uL (4.70-6.10); White Blood Cell (WBC) Count 11.2 thou/uL (4.8-10.8)
[2022-02-19 06:52] LABS: Anion Gap 8 mmol/L (10-20); BUN (Urea Nitrogen) 4 mg/dL (8.9-20.6); Calc. Creatinine Clearance 100 mL/min (70-130); Calcium 8.1 mg/dL (7.8-10.44); Carbon Dioxide 30 mmol/L (22-29); Chloride 100 mmol/L (98-107); Estimated GFR 123; Glucose 313 mg/dL (70-105); Potassium 3.9 mmol/L (3.5-5.1); Sodium 134 mmol/L (136-145)
[2022-02-19] MEDS: HumaLOG 300 UNITS/3 ML VIAL SC PRN ×3 (07:16→21:05)
[2022-02-19] MEDS: Famotidine 20 MG TAB PO SCH ×2 (09:00→21:03)
[2022-02-19] MEDS: Saccharomyces boulardii 250 MG CAP PO SCH (09:00)
[2022-02-19] MEDS: Enoxaparin Sodium 30 MG/0.3 ML SYRINGE SC SCH (09:00)
[2022-02-19] MEDS: glyBURIDE 5 MG TAB PO SCH ×2 (09:01→15:24)
[2022-02-19 09:13] LABS: Routine O & P Final report (.)
[2022-02-19] MEDS ORDERED: Insulin Glargine 30 UNITS/0.3 ML VIAL SC SCH (10:45)
[2022-02-19] MEDS: Nicotine 21 MG PATCH TD SCH (21:03)
[2022-02-19] MEDS: Gabapentin 300 MG CAP PO SCH (21:04)
[2022-02-20] MEDS: HYDROcodone/Acetaminophen 5/325 mg Tablet PO PRN ×3 (04:51→21:40)
[2022-02-20] MEDS: CEFAZOLIN 2 GM in Sodium Chloride 0.9% 100 ML IVPB SCH ×3 (04:52→21:39)
[2022-02-20] MEDS: Loperamide HCl 2 MG CAP PO PRN ×2 (05:00→07:34)
[2022-02-20 05:34] LABS: #Basophils 0.1 thou/uL (0.0-0.2); #Eosinphils 0.2 thou/uL (0.0-0.7); #Lymphocytes 2.7 thou/uL (1.20-3.40); #Monocytes 0.9 thou/uL (0.11-0.59); #Neutrophils 8.3 thou/uL (1.40-6.50); %Basophils 1.1 % (0.0-1.0); %Eosinophils 1.3 % (0.0-10.0); %Lymphocytes 22.1 % (21.0-51.0); %Neutrophils 68.5 % (42.0-75.0); Hemoglobin 8.9 g/dL (14.0-18.0); Mean Corpuscular HGB CONC 31.8 g/dL (32.0-36.0); Mean Corpuscular Hemoglobin 30.8 pg (27.0-31.0); Mean Corpuscular Volume 96.8 fl (78.0-98.0); Mean Platelet Volume 6.4 fL (7.4-10.4); Platelet Count 679 thou/uL (130-400); RBC Distribution Width 13.2 % (11.5-14.5); Red Blood Cell (RBC) Count 2.88 mill/uL (4.70-6.10); White Blood Cell (WBC) Count 12.1 thou/uL (4.8-10.8)
[2022-02-20 05:41] LABS: Anion Gap 8 mmol/L (10-20); BUN (Urea Nitrogen) Less than 4 mg/dL (8.9-20.6); Calc. Creatinine Clearance 115 mL/min (70-130); Calcium 8.4 mg/dL (7.8-10.44); Carbon Dioxide 31 mmol/L (22-29); Chloride 100 mmol/L (98-107); Estimated GFR 128; Glucose 177 mg/dL (70-105); Sodium 135 mmol/L (136-145)
[2022-02-20] MEDS: HumaLOG 300 UNITS/3 ML VIAL SC PRN ×2 (06:23→16:23)
[2022-02-20] MEDS: Saccharomyces boulardii 250 MG CAP PO SCH (07:34)
[2022-02-20] MEDS: glyBURIDE 5 MG TAB PO SCH ×2 (07:34→15:17)
[2022-02-20] MEDS: Insulin Glargine 30 UNITS/0.3 ML VIAL SC SCH (07:34)
[2022-02-20] MEDS: Famotidine 20 MG TAB PO SCH ×2 (07:34→21:39)
[2022-02-20] MEDS: Enoxaparin Sodium 30 MG/0.3 ML SYRINGE SC SCH (07:34)
[2022-02-20] MEDS: Sodium Chloride 0.9% 1,000 ML IV SCH ×3 (09:38→21:40)
[2022-02-20] MEDS: Nicotine 21 MG PATCH TD SCH (21:39)
[2022-02-20] MEDS: Gabapentin 300 MG CAP PO SCH (21:39)
[2022-02-21] MEDS: HYDROcodone/Acetaminophen 5/325 mg Tablet PO PRN ×3 (01:15→11:00)
[2022-02-21 05:24] LABS: #Basophils 0.1 thou/uL (0.0-0.2); #Eosinphils 0.2 thou/uL (0.0-0.7); #Lymphocytes 3.1 thou/uL (1.20-3.40); #Monocytes 0.8 thou/uL (0.11-0.59); #Neutrophils 7.3 thou/uL (1.40-6.50); %Basophils 0.9 % (0.0-1.0); %Eosinophils 1.6 % (0.0-10.0); %Lymphocytes 26.7 % (21.0-51.0); %Neutrophils 63.9 % (42.0-75.0); Hemoglobin 8.7 g/dL (14.0-18.0); Mean Corpuscular HGB CONC 31.5 g/dL (32.0-36.0); Mean Corpuscular Hemoglobin 30.1 pg (27.0-31.0); Mean Corpuscular Volume 95.6 fl (78.0-98.0); Mean Platelet Volume 6.5 fL (7.4-10.4); Platelet Count 631 thou/uL (130-400); RBC Distribution Width 13.2 % (11.5-14.5); White Blood Cell (WBC) Count 11.4 thou/uL (4.8-10.8)
[2022-02-21 05:46] LABS: Anion Gap 8 mmol/L (10-20); BUN (Urea Nitrogen) 6 mg/dL (8.9-20.6); Calc. Creatinine Clearance 106 mL/min (70-130); Calcium 8.6 mg/dL (7.8-10.44); Carbon Dioxide 32 mmol/L (22-29); Chloride 96 mmol/L (98-107); Estimated GFR 125; Glucose 215 mg/dL (70-105); Potassium 4.4 mmol/L (3.5-5.1); Sodium 132 mmol/L (136-145)
[2022-02-21] MEDS: CEFAZOLIN 2 GM in Sodium Chloride 0.9% 100 ML IVPB SCH ×3 (06:18→14:12)
[2022-02-21] MEDS: HumaLOG 300 UNITS/3 ML VIAL SC PRN (06:25)
[2022-02-21] MEDS: Insulin Glargine 30 UNITS/0.3 ML VIAL SC SCH (07:54)
[2022-02-21] MEDS: Saccharomyces boulardii 250 MG CAP PO SCH (07:54)
[2022-02-21] MEDS: Enoxaparin Sodium 30 MG/0.3 ML SYRINGE SC SCH (07:54)
[2022-02-21] MEDS: glyBURIDE 5 MG TAB PO SCH ×2 (07:54→16:09)
[2022-02-21] MEDS: Famotidine 20 MG TAB PO SCH (07:54)
[2022-02-21] MEDS: Sodium Chloride 0.9% 1,000 ML IV SCH (07:55)
[2022-02-21 08:26] VITALS: BP 104/69; TEMP 98.1
== END 2022-02-21 18:09 | disposition home or self-care (01) | DRG 871 ==
LOC: MSONC 14:59 → OBSVTOIN 02-09 08:46
PROVIDERS: ADMIT Hospitalist; ATTEND Internal Medicine
PROC: 3E03329 Introduction of Other Anti-infective into Peripheral Vein, Percutaneous Approach (ICD-10-PCS; 2022-02-09)
PROC: 0J960ZZ Drainage of Chest Subcutaneous Tissue and Fascia, Open Approach (ICD-10-PCS; 2022-02-11)
PROC: 0J970ZZ Drainage of Back Subcutaneous Tissue and Fascia, Open Approach (ICD-10-PCS; 2022-02-13)
PROC: B24BZZ4 Ultrasonography of Heart with Aorta, Transesophageal (ICD-10-PCS; 2022-02-14)
PROC: 02HV33Z Insertion of Infusion Device into Superior Vena Cava, Percutaneous Approach (ICD-10-PCS; principal; 2022-02-17)
PROC: B548ZZA Ultrasonography of Superior Vena Cava, Guidance (ICD-10-PCS; 2022-02-17)
DX: A41.01 Sepsis due to Methicillin susceptible Staphylococcus aureus (principal); E43 Unspecified severe protein-calorie malnutrition; I33.0 Acute and subacute infective endocarditis; L02.213 Cutaneous abscess of chest wall; E87.1 Hypo-osmolality and hyponatremia; R64 Cachexia; Z68.1 Body mass index [BMI] 19.9 or less, adult; C79.51 Secondary malignant neoplasm of bone; E11.52 Type 2 diabetes mellitus with diabetic peripheral angiopathy with gangrene; L02.415 Cutaneous abscess of right lower limb; L02.413 Cutaneous abscess of right upper limb; M60.003 Infective myositis, unspecified right leg; I10 Essential (primary) hypertension; Z20.822 Contact with and (suspected) exposure to COVID-19; E78.5 Hyperlipidemia, unspecified; F17.210 Nicotine dependence, cigarettes, uncomplicated; F32.A Depression, unspecified; D72.829 Elevated white blood cell count, unspecified; F10.20 Alcohol dependence, uncomplicated; M62.84 Sarcopenia; K52.9 Noninfective gastroenteritis and colitis, unspecified; E11.65 Type 2 diabetes mellitus with hyperglycemia; Z79.4 Long term (current) use of insulin; Z79.899 Other long term (current) drug therapy; Z79.84 Long term (current) use of oral hypoglycemic drugs
CPT/HCPCS: 36415; 36416; 36569; 70553; 72158; 74177; 76770; 76999; 80048; 80053; 80202; 81001; 83036; 83605; 83735; 84145; 84155; 84165; 84166; 85025; 85610; 85652; 85730; 86140; 86334; 86335; 86480; 86698; 86803; 87040; 87070; 87077; 87086; 87149; 87177; 87186; 87205; 87324; 87385; 87389; 87449; 87505; 87811; 93306; 93312; 96372; 96374; 96375; 96376; 97139; A9579; C1751; G0378; J0171; J0690; J0692; J1644; J1650; J1815; J2270; J2405; J2704; J3010; J3370; J3475; J3490; J7050; S0020; U0002; U0003; U0005

== ENCOUNTER 2022-05-07 18:32 | Emergency (ER) | payer BC, OTHER ==
[2022-05-07 19:09] LABS: Bilirubin Negative (Negative); Blood, Urine Negative (Negative); Clarity Clear (Clear); Glucose, Urine (Dipstick) Greater than 1000 mg/dL (Negative); Ketone, Urine 60 mg/dL (Negative); Leukocyte Negative Leu/uL (Negative); Nitrite Negative (Negative); Protein, Urine (Dipstick) Negative (Neg-Trace); Specific Gravity, Urine 1.036 (1.002-1.036); Urobilinogen Normal mg/dL (Less than 2); pH, Urine 5.5 (5.0-9.0)
[2022-05-07 19:25] LABS: #Eosinphils 0.1 thou/uL (0.0-0.7); #Lymphocytes 2.2 thou/uL (1.20-3.40); #Monocytes 0.4 thou/uL (0.11-0.59); #Neutrophils 3.9 thou/uL (1.40-6.50); %Basophils 0.7 % (0.0-1.0); %Eosinophils 1.9 % (0.0-10.0); %Lymphocytes 33.4 % (21.0-51.0); %Monocytes 5.8 % (0.0-10.0); %Neutrophils 58.1 % (42.0-75.0); Hemoglobin 14.3 g/dL (14.0-18.0); Mean Corpuscular HGB CONC 34.1 g/dL (32.0-36.0); Mean Corpuscular Hemoglobin 30.7 pg (27.0-31.0); Mean Corpuscular Volume 90.1 fl (78.0-98.0); Mean Platelet Volume 8.6 fL (7.4-10.4); Platelet Count 219 10x3/uL (130-400); RBC Distribution Width 12.8 % (11.5-14.5); Red Blood Cell (RBC) Count 4.67 mill/uL (4.70-6.10); White Blood Cell (WBC) Count 6.6 10x3/uL (4.8-10.8)
[2022-05-07 19:47] LABS: Actual Bicarbonate (HCO3v) 25 mEq/L (22-28); Calcium, Ionized (venous) 1.13 mmol/L (1.16-1.32); Chloride (VBG) 90 mmol/L (98-106); Hemoglobin (Hb) 15.2 g/dL (13.1-17.2); Potassium (VBG) 4.47 mmol/L (3.70-5.30); Sodium 126.2 mmol/L (133-146); pH (venous) 7.44 (7.32-7.43)
[2022-05-07 19:49] LABS: Anion Gap 15 mmol/L (10-20); BUN (Urea Nitrogen) 5 mg/dL (8.9-20.6); Calc. Creatinine Clearance 0 mL/min (70-130); Carbon Dioxide 25 mmol/L (22-29); Chloride 90 mmol/L (98-107); Magnesium 1.5 mg/dL (1.6-2.6); Potassium 4.4 mmol/L (3.5-5.1); Sodium 126 mmol/L (136-145)
[2022-05-07 19:50] LABS: ALT (SGPT) Less than 7 U/L (8-55); AST (SGOT) 9 U/L (5-34); Albumin 3.7 g/dL (3.5-5.0); Alkaline Phosphatase 72 U/L (40-110); Bilirubin, Total 0.4 mg/dL (0.2-1.2); Estimated GFR 81; Globulin 3.2 g/dL (2.4-3.5); Phosphorus 2.8 mg/dL (2.3-4.7); Protein, Total 6.9 g/dL (6.0-8.3)
[2022-05-07 19:53] LABS: Glucose 655 mg/dL (70-105)
[2022-05-07] MEDS ORDERED: Insulin Regular 300 UNITS/3 ML VIAL ONE (19:57)
== END 2022-05-07 22:36 | disposition home or self-care (01) ==
LOC: ERS 18:32
DX: E11.65 Type 2 diabetes mellitus with hyperglycemia (principal); E86.0 Dehydration; A08.8 Other specified intestinal infections; I11.0 Hypertensive heart disease with heart failure; I50.9 Heart failure, unspecified; E78.5 Hyperlipidemia, unspecified; F17.210 Nicotine dependence, cigarettes, uncomplicated
CPT/HCPCS: 36415; 80053; 81003; 82010; 82805; 83605; 83735; 83930; 84100; 85025; 87040; 87086; 99285; J1815

== ENCOUNTER 2022-06-24 14:17 | Outpatient (CLI) | payer BC, OTHER | END 2022-06-24 14:18 | disposition home or self-care (01) | LOC: RAD 14:17 | PROVIDERS: ATTEND Internal Medicine | DX: R06.00 Dyspnea, unspecified (principal) | CPT/HCPCS: 71046 ==

== ENCOUNTER 2022-07-18 22:03 | Inpatient (IN) | payer OTHER ==
[2022-07-18 22:52] LABS: #Basophils 0.1 thou/uL (0.0-0.2); #Eosinphils 0.2 thou/uL (0.0-0.7); #Lymphocytes 2.1 thou/uL (1.20-3.40); #Monocytes 0.5 thou/uL (0.11-0.59); #Neutrophils 2.3 thou/uL (1.40-6.50); %Basophils 1.3 % (0.0-1.0); %Eosinophils 3.8 % (0.0-10.0); %Lymphocytes 40.5 % (21.0-51.0); %Neutrophils 44.3 % (42.0-75.0); Hemoglobin 11.5 g/dL (14.0-18.0); Mean Corpuscular HGB CONC 34.4 g/dL (32.0-36.0); Mean Corpuscular Hemoglobin 32.4 pg (27.0-31.0); Mean Corpuscular Volume 94.4 fl (78.0-98.0); Mean Platelet Volume 8.4 fL (7.4-10.4); Platelet Count 206 10x3/uL (130-400); RBC Distribution Width 13.7 % (11.5-14.5); Red Blood Cell (RBC) Count 3.55 mill/uL (4.70-6.10); White Blood Cell (WBC) Count 5.3 10x3/uL (4.8-10.8)
[2022-07-18 23:05] LABS: ALT (SGPT) 45 U/L (8-55); AST (SGOT) 43 U/L (5-34); Albumin 3.5 g/dL (3.5-5.0); Alkaline Phosphatase 97 U/L (40-110); Anion Gap 14 mmol/L (10-20); BUN (Urea Nitrogen) 11 mg/dL (8.9-20.6); Bilirubin, Total 0.9 mg/dL (0.2-1.2); Calc. Creatinine Clearance 0 mL/min (70-130); Calcium 8.4 mg/dL (7.8-10.44); Carbon Dioxide 23 mmol/L (22-29); Chloride 87 mmol/L (98-107); Estimated GFR 81; Globulin 2.9 g/dL (2.4-3.5); Phosphorus 3.1 mg/dL (2.3-4.7); Potassium 4.1 mmol/L (3.5-5.1); Protein, Total 6.4 g/dL (6.0-8.3); Sodium 120 mmol/L (136-145)
[2022-07-18 23:06] LABS: Bilirubin Negative (Negative); Blood, Urine Negative (Negative); Clarity Clear (Clear); Glucose, Urine (Dipstick) Greater than 1000 mg/dL (Negative); Ketone, Urine Negative (Negative); Leukocyte Negative Leu/uL (Negative); Nitrite Negative (Negative); Protein, Urine (Dipstick) Negative (Neg-Trace); Urobilinogen Normal mg/dL (Less than 2)
[2022-07-18 23:06] LABS: Magnesium 1.7 mg/dL (1.6-2.6)
[2022-07-18 23:23] LABS: Glucose 888 mg/dL (70-105)
[2022-07-18 23:27] LABS: Actual Bicarbonate (HCO3v) 28 mEq/L (22-28); Calcium, Ionized (venous) 1.07 mmol/L (1.16-1.32); Chloride (VBG) 87 mmol/L (98-106); Potassium (VBG) 3.83 mmol/L (3.70-5.30); Sodium 119.2 mmol/L (133-146); pH (venous) 7.38 (7.32-7.43)
[2022-07-19] MEDS ORDERED: NS 0.9% w/ 20 MEQ KCL 1,000 ML IV SCH (00:30)
[2022-07-19] MEDS ORDERED: Insulin Regular 300 UNITS/3 ML VIAL ONE (00:30)
[2022-07-19] MEDS ORDERED: INSULIN REGULAR IN 0.9 % NACL 100 UNIT/100 ML BAG ONE (00:56)
[2022-07-19] MEDS ORDERED: Ondansetron PF 4 MG/2 ML Vial IVP PRN (02:29)
[2022-07-19] MEDS ORDERED: Acetaminophen 325 MG TAB PO PRN (02:29)
[2022-07-19] MEDS ORDERED: HUMULIN R 100 UNITS in Sodium Chloride 0.9% 100 ML IVPB SCH (02:30)
[2022-07-19] MEDS ORDERED: Electrolyte Replacement Protocol 1 EACH IVPB PRN (02:30)
[2022-07-19] MEDS ORDERED: Sodium Chloride 0.9% 1,000 ML IV PRN ×4 (02:30)
[2022-07-19] MEDS ORDERED: Dextrose 5 %-0.45 % NaCl 1,000 ML IV PRN (02:30)
[2022-07-19] MEDS ORDERED: Dextrose 50% Abboject 50 ML SYRINGE SLOW IVP PRN ×2 (02:30→09:06)
[2022-07-19] MEDS ORDERED: NS 0.9% w/ 20 MEQ KCL 1,000 ML IV PRN (02:30)
[2022-07-19 02:58] LABS: Anion Gap 12 mmol/L (10-20); BUN (Urea Nitrogen) 8 mg/dL (8.9-20.6); Calc. Creatinine Clearance 0 mL/min (70-130); Calcium 8.3 mg/dL (7.8-10.44); Carbon Dioxide 24 mmol/L (22-29); Chloride 96 mmol/L (98-107); Estimated GFR 108; Potassium 3.6 mmol/L (3.5-5.1); Sodium 128 mmol/L (136-145)
[2022-07-19 03:07] LABS: Glucose 503 mg/dL (70-105)
[2022-07-19] MEDS: NS 0.9% w/ 20 MEQ KCL 1,000 ML IV PRN ×2 (03:10→05:26)
[2022-07-19] MEDS: Nicotine 14 MG PATCH TD SCH (03:27)
[2022-07-19 04:46] VITALS: BMI 16.2
[2022-07-19] MEDS ORDERED: Sodium Chloride 0.9% 500 ML IVPB SCH (05:15)
[2022-07-19] MEDS: D5 1/2 NS w/20 mEq KCL 1,000 ML IV PRN ×2 (05:16→06:04)
[2022-07-19] MEDS ORDERED: Midodrine HCl 5 MG TAB PO SCH (05:30)
[2022-07-19 05:57] LABS: Hemoglobin 10.7 g/dL (14.0-18.0); Mean Corpuscular HGB CONC 35.2 g/dL (32.0-36.0); Mean Corpuscular Hemoglobin 32.3 pg (27.0-31.0); Mean Corpuscular Volume 91.6 fl (78.0-98.0); Mean Platelet Volume 7.4 fL (7.4-10.4); Platelet Count 178 10x3/uL (130-400); RBC Distribution Width 13.8 % (11.5-14.5); Red Blood Cell (RBC) Count 3.33 mill/uL (4.70-6.10); White Blood Cell (WBC) Count 6.7 10x3/uL (4.8-10.8)
[2022-07-19] MEDS ORDERED: Magnesium 2 GM/50 ML(in water) 2 GM in Premix Bag 1 BAG IVPB SCH (06:00)
[2022-07-19 06:01] LABS: Hemoglobin A1c Greater than 14.0 % (4.0-6.0)
[2022-07-19 06:03] LABS: Lactic Acid 1.9 mmol/L (0.5-2.2)
[2022-07-19 06:11] LABS: Anion Gap 8 mmol/L (10-20); BUN (Urea Nitrogen) 6 mg/dL (8.9-20.6); Calc. Creatinine Clearance 87 mL/min (70-130); Calcium 7.9 mg/dL (7.8-10.44); Carbon Dioxide 26 mmol/L (22-29); Chloride 102 mmol/L (98-107); Estimated GFR 114; Glucose 202 mg/dL (70-105); Potassium 3.2 mmol/L (3.5-5.1); Sodium 133 mmol/L (136-145)
[2022-07-19 06:35] LABS: Eosinophils 9 % (0-10); Lymphocytes 56 % (21-51); MDiff Complete? YES; Monocytes 2 % (0-10); Neutrophil 33 % (42-75); Platelet Morphology Comment Appears Adequate; RBC Morphology Normal
[2022-07-19] MEDS: Potassium Chloride 20 MEQ in Premix Bag 1 BAG IVPB SCH ×2 (08:37→11:28)
[2022-07-19] MEDS ORDERED: Dextrose 5% in Water 1,000 ML IV PRN (09:06)
[2022-07-19] MEDS ORDERED: Potassium Chloride 20 MEQ TAB PO SCH (09:30)
[2022-07-19 10:43] LABS: Anion Gap 6 mmol/L (10-20); BUN (Urea Nitrogen) 5 mg/dL (8.9-20.6); Calc. Creatinine Clearance 105 mL/min (70-130); Carbon Dioxide 27 mmol/L (22-29); Chloride 102 mmol/L (98-107); Estimated GFR 121; Glucose 66 mg/dL (70-105); Potassium 3.9 mmol/L (3.5-5.1); Sodium 131 mmol/L (136-145)
[2022-07-19] MEDS ORDERED: Diphenoxylate HCl/Atropine Tablet PO PRN (13:42)
[2022-07-19] MEDS: HumaLOG 300 UNITS/3 ML VIAL SC PRN (17:19)
[2022-07-19 17:34] LABS: Anion Gap 10 mmol/L (10-20); Carbon Dioxide 25 mmol/L (22-29); Chloride 98 mmol/L (98-107); Potassium 5.3 mmol/L (3.5-5.1); Sodium 128 mmol/L (136-145)
[2022-07-19] MEDS ORDERED: QUEtiapine 25 MG TAB PO SCH (21:00)
[2022-07-19] MEDS ORDERED: Insulin Glargine 30 UNITS/0.3 ML VIAL SC SCH (21:00)
[2022-07-19] MEDS: Gabapentin 400 MG CAP PO SCH (22:14)
[2022-07-20] MEDS: Nicotine 14 MG PATCH TD SCH (03:27)
[2022-07-20] MEDS ORDERED: Sodium Chloride 0.9% 1,000 ML IV SCH (03:30)
[2022-07-20 04:40] LABS: Anion Gap 9 mmol/L (10-20); BUN (Urea Nitrogen) 6 mg/dL (8.9-20.6); Calc. Creatinine Clearance 89 mL/min (70-130); Calcium 8.6 mg/dL (7.8-10.44); Carbon Dioxide 29 mmol/L (22-29); Chloride 101 mmol/L (98-107); Estimated GFR 115; Glucose 217 mg/dL (70-105); Potassium 4.6 mmol/L (3.5-5.1); Sodium 134 mmol/L (136-145)
[2022-07-20] MEDS: Gabapentin 400 MG CAP PO SCH (09:44)
[2022-07-20] MEDS: HumaLOG 300 UNITS/3 ML VIAL SC PRN ×2 (11:56→16:05)
[2022-07-20 16:14] VITALS: TEMP 97.8
== END 2022-07-20 06:20 | disposition home or self-care (01) | DRG 638 ==
LOC: ERS 22:03 → IMCU/EMU 07-19 00:49
PROVIDERS: ADMIT Internal Medicine; ATTEND Internal Medicine
PROC: 4A033R1 Measurement of Arterial Saturation, Peripheral, Percutaneous Approach (ICD-10-PCS; principal; 2022-07-19)
DX: E11.00 Type 2 diabetes mellitus with hyperosmolarity without nonketotic hyperglycemic-hyperosmolar coma (NKHHC) (principal); E44.0 Moderate protein-calorie malnutrition; E87.1 Hypo-osmolality and hyponatremia; R64 Cachexia; Z68.1 Body mass index [BMI] 19.9 or less, adult; Z20.822 Contact with and (suspected) exposure to COVID-19; E11.42 Type 2 diabetes mellitus with diabetic polyneuropathy; R33.9 Retention of urine, unspecified; F17.210 Nicotine dependence, cigarettes, uncomplicated; R91.1 Solitary pulmonary nodule; J44.9 Chronic obstructive pulmonary disease, unspecified; E11.10 Type 2 diabetes mellitus with ketoacidosis without coma; N31.9 Neuromuscular dysfunction of bladder, unspecified; E87.6 Hypokalemia; I10 Essential (primary) hypertension; E78.5 Hyperlipidemia, unspecified; Z79.84 Long term (current) use of oral hypoglycemic drugs; Z79.4 Long term (current) use of insulin; Z79.899 Other long term (current) drug therapy; Z80.9 Family history of malignant neoplasm, unspecified; Z71.6 Tobacco abuse counseling
CPT/HCPCS: 36415; 36416; 71045; 74177; 80048; 80053; 81003; 82010; 82533; 82805; 83036; 83605; 83735; 83930; 84100; 85025; 87086; 96365; 96368; J1650; J1815; J2405; J3475; J3480; J7030; J7050; U0003; U0005

== ENCOUNTER 2023-02-12 13:36 | Inpatient (IN) | payer OTHER ==
[2023-02-12] MEDS ORDERED: Iopamidol-370 76% 500 ML MDV (1 ML CHARGE) ONE (13:37)
[2023-02-12 14:21] LABS: #Monocytes 1.4 thou/uL (0.11-0.59); #Neutrophils 15.8 thou/uL (1.40-6.50); %Basophils 0.2 % (0.0-1.0); %Lymphocytes 4.9 % (21.0-51.0); %Monocytes 7.5 % (0.0-10.0); %Neutrophils 86.8 % (42.0-75.0); Hematocrit 40.9 % (42.0-52.0); Hemoglobin 13.2 g/dL (14.0-18.0); Mean Corpuscular HGB CONC 32.3 g/dL (32.0-36.0); Mean Corpuscular Hemoglobin 30.2 pg (27.0-31.0); Mean Corpuscular Volume 93.6 fl (78.0-98.0); Mean Platelet Volume 10.8 fL (7.4-10.4); Platelet Count 325 10x3/uL (130-400); RBC Distribution Width 13.5 % (11.5-14.5); Red Blood Cell (RBC) Count 4.37 mill/uL (4.70-6.10); White Blood Cell (WBC) Count 18.2 10x3/uL (4.8-10.8)
[2023-02-12 14:32] LABS: Bacteria/HPF None Seen HPF (None Seen); Bilirubin Negative (Negative); Blood, Urine Negative (Negative); CAUTI Indications for Culture Dysuria,urgency,freq; Clarity Clear (Clear); Glucose, Urine (Dipstick) Greater than 1000 mg/dL (Negative); Ketone, Urine Greater than 150 mg/dL (Negative); Leukocyte Negative Leu/uL (Negative); Nitrite Negative (Negative); Protein, Urine (Dipstick) 10 mg/dL (Neg-Trace); RBC/HPF None Seen HPF (0-3); Squamous Epithelial None Seen HPF (0-3); Urobilinogen Normal mg/dL (Less than 2); WBC/HPF 0-3 HPF (0-3)
[2023-02-12 14:35] LABS: Urine Culture Reflex No No
[2023-02-12 14:37] LABS: Base Excess -24.9 mEq/L (-2.0 to +3.0); Calcium, Ionized (venous) 1.17 mmol/L (1.16-1.32); Chloride (VBG) 92 mmol/L (98-106); Hematocrit-VBG 41 % (42.0-52.0); Hemoglobin (Hb) 14.1 g/dL (13.1-17.2); Potassium (VBG) 4.68 mmol/L (3.70-5.30); Sodium 132 mmol/L (133-146)
[2023-02-12 14:43] LABS: pH (venous) 7.012 (7.32-7.43)
[2023-02-12 14:44] LABS: Actual Bicarbonate (HCO3v) 4.6 mEq/L (22-28)
[2023-02-12 14:48] LABS: Phosphorus 5.1 mg/dL (2.3-4.7)
[2023-02-12 14:51] LABS: ALT (SGPT) 9 U/L (8-55); AST (SGOT) 6 U/L (5-34); Albumin 4.4 g/dL (3.5-5.0); Alkaline Phosphatase 81 U/L (40-110); BUN (Urea Nitrogen) 22 mg/dL (8.9-20.6); Bilirubin, Total 0.3 mg/dL (0.2-1.2); Calc. Creatinine Clearance 0 mL/min (70-130); Calcium 8.4 mg/dL (7.8-10.44); Chloride 92 mmol/L (98-107); Estimated GFR 36; Globulin 2.7 g/dL (2.4-3.5); Lipase 12 U/L (8-78); Magnesium 1.9 mg/dL (1.6-2.6); Potassium 4.8 mmol/L (3.5-5.1); Protein, Total 7.1 g/dL (6.0-8.3); Sodium 131 mmol/L (136-145)
[2023-02-12 14:53] LABS: Troponin I 0.013 ng/mL (< 0.028)
[2023-02-12] MEDS ORDERED: cefTRIAXone (ROCEPHIN) 1 GM VIAL ONE (15:05)
[2023-02-12 15:12] LABS: Glucose 712 mg/dL (70-105)
[2023-02-12 15:18] LABS: Carbon Dioxide Less than 8 mmol/L (22-29)
[2023-02-12] MEDS ORDERED: INSULIN REGULAR IN 0.9 % NACL 100 UNITS/100 ML BAG ONE (15:37)
[2023-02-12] MEDS ORDERED: Potassium Chloride 20 MEQ/100 ML PREMIX BAG ONE ×2 (15:58→18:10)
[2023-02-12] MEDS ORDERED: Pantoprazole 40 MG VIAL ONE (16:38)
[2023-02-12 17:31] LABS: Base Excess -22.6 mEq/L (-2.0 to +3.0); Calcium, Ionized (venous) 1.16 mmol/L (1.16-1.32); Chloride (VBG) 98 mmol/L (98-106); Hematocrit-VBG 40 % (42.0-52.0); Hemoglobin (Hb) 13.7 g/dL (13.1-17.2); Potassium (VBG) 4.54 mmol/L (3.70-5.30); Sodium 135 mmol/L (133-146)
[2023-02-12 17:32] LABS: pH (venous) 7.062 (7.32-7.43)
[2023-02-12 17:33] LABS: Actual Bicarbonate (HCO3v) 6.1 mEq/L (22-28)
[2023-02-12] MEDS ORDERED: Dextrose 50% Abboject 50 ML SYRINGE SLOW IVP PRN (17:34)
[2023-02-12] MEDS ORDERED: NS 0.9% w/ 20 MEQ KCL 1,000 ML IV PRN ×2 (17:34)
[2023-02-12] MEDS ORDERED: Sodium Chloride 0.9% 1,000 ML IV PRN ×4 (17:34)
[2023-02-12] MEDS ORDERED: Electrolyte Replacement Protocol 1 EACH IVPB SCH (17:34)
[2023-02-12] MEDS ORDERED: Dextrose 5 %-0.45 % NaCl 1,000 ML IV PRN (17:34)
[2023-02-12] MEDS ORDERED: Ondansetron ODT 4 MG TAB PO PRN (17:37)
[2023-02-12] MEDS ORDERED: Ondansetron PF 4 MG/2 ML Vial IVP PRN (17:37)
[2023-02-12 17:42] LABS: Lactic Acid 1.3 mmol/L (0.5-2.2)
[2023-02-12] MEDS ORDERED: HUMULIN R 100 UNITS in Sodium Chloride 0.9% 100 ML IVPB SCH (17:45)
[2023-02-12] MEDS ORDERED: Sodium Bicarb 50 MEQ/50 ML Abboject 8.4% SYRINGE IVP SCH (17:45)
[2023-02-12] MEDS ORDERED: Sodium Bicarb 50 MEQ/50 ML VIAL ONE (17:53)
[2023-02-12 18:17] LABS: BUN (Urea Nitrogen) 19 mg/dL (8.9-20.6); Calc. Creatinine Clearance 0 mL/min (70-130); Calcium 8.1 mg/dL (7.8-10.44); Chloride 100 mmol/L (98-107); Estimated GFR 40; Potassium 4.5 mmol/L (3.5-5.1); Sodium 132 mmol/L (136-145)
[2023-02-12 18:24] LABS: Carbon Dioxide Less than 8 mmol/L (22-29); Glucose 668 mg/dL (70-105)
[2023-02-12 18:53] LABS: Troponin I 0.017 ng/mL (< 0.028)
[2023-02-12 21:00] LABS: Anion Gap 21 mmol/L (10-20); BUN (Urea Nitrogen) 17 mg/dL (8.9-20.6); Calc. Creatinine Clearance 0 mL/min (70-130); Calcium 8.1 mg/dL (7.8-10.44); Carbon Dioxide 11 mmol/L (22-29); Chloride 105 mmol/L (98-107); Estimated GFR 46; Potassium 4.5 mmol/L (3.5-5.1); Sodium 132 mmol/L (136-145)
[2023-02-12] MEDS ORDERED: Sodium Bicarbonate Tab 325 MG TAB PO SCH (21:00)
[2023-02-12 21:04] LABS: Glucose 533 mg/dL (70-105)
[2023-02-12] MEDS: Gabapentin 400 MG CAP PO SCH (22:02)
[2023-02-12] MEDS: Pantoprazole 40 MG VIAL IVP SCH (22:02)
[2023-02-12] MEDS: QUEtiapine 25 MG TAB PO SCH (22:02)
[2023-02-12] MEDS: Heparin 5,000 UNITS/ML VIAL SC SCH (22:02)
[2023-02-13] MEDS: D5 1/2 NS w/20 mEq KCL 1,000 ML IV PRN ×3 (02:10→09:32)
[2023-02-13 03:31] LABS: #Neutrophils 8.7 thou/uL (1.40-6.50); %Basophils 0.2 % (0.0-1.0); %Eosinophils 0.2 % (0.0-10.0); %Monocytes 8.5 % (0.0-10.0); %Neutrophils 74.8 % (42.0-75.0); Hemoglobin 10.7 g/dL (14.0-18.0); Mean Corpuscular HGB CONC 34.9 g/dL (32.0-36.0); Mean Corpuscular Hemoglobin 30.6 pg (27.0-31.0); Mean Platelet Volume 9.7 fL (7.4-10.4); Platelet Count 245 10x3/uL (130-400); RBC Distribution Width 13.7 % (11.5-14.5); White Blood Cell (WBC) Count 11.6 10x3/uL (4.8-10.8)
[2023-02-13 03:42] LABS: Hemoglobin A1c 11.2 % (4.0-6.0)
[2023-02-13 03:52] LABS: Anion Gap 10 mmol/L (10-20); BUN (Urea Nitrogen) 11 mg/dL (8.9-20.6); Calc. Creatinine Clearance 49 mL/min (70-130); Calcium 7.9 mg/dL (7.8-10.44); Carbon Dioxide 20 mmol/L (22-29); Chloride 110 mmol/L (98-107); Estimated GFR 68; Glucose 271 mg/dL (70-105); Potassium 4.2 mmol/L (3.5-5.1); Sodium 136 mmol/L (136-145)
[2023-02-13 04:05] LABS: Hematocrit 30.7 % (42.0-52.0); Mean Corpuscular Volume 87.7 fl (78.0-98.0)
[2023-02-13 04:19] LABS: Magnesium 1.5 mg/dL (1.6-2.6); Phosphorus 1.5 mg/dL (2.3-4.7)
[2023-02-13] MEDS: PHOS-NAK 1 PKT PACK PO SCH ×4 (05:14→17:38)
[2023-02-13] MEDS ORDERED: Magnesium 2 GM/50 ML(in water) 2 GM in Premix 1 BAG IVPB SCH (06:00)
[2023-02-13 06:23] LABS: Anion Gap 9 mmol/L (10-20); BUN (Urea Nitrogen) 9 mg/dL (8.9-20.6); Calc. Creatinine Clearance 52 mL/min (70-130); Carbon Dioxide 19 mmol/L (22-29); Chloride 110 mmol/L (98-107); Estimated GFR 72; Glucose 253 mg/dL (70-105); Potassium 3.7 mmol/L (3.5-5.1); Sodium 134 mmol/L (136-145)
[2023-02-13 08:29] VITALS: BMI 17.4
[2023-02-13] MEDS ORDERED: FLU VACC QS2023-24(6MOS UP)/PF 60 MCG/0.5 ML SYRINGE IM ONE (09:00)
[2023-02-13] MEDS: Heparin 5,000 UNITS/ML VIAL SC SCH ×2 (09:21→22:28)
[2023-02-13] MEDS: Gabapentin 400 MG CAP PO SCH ×2 (09:21→22:28)
[2023-02-13] MEDS: Pantoprazole 40 MG VIAL IVP SCH ×2 (09:22→22:28)
[2023-02-13] MEDS ORDERED: Insulin Glargine 30 UNITS/0.3 ML VIAL SC SCH (10:15)
[2023-02-13] MEDS ORDERED: Non-Formulary Item 1 EACH (Insulin Aspart [Novolog Flexpen] 100 UNIT/ML Insuln.Pen) SQ SCH (12:00)
[2023-02-13] MEDS: HumaLOG 300 UNITS/3 ML VIAL SC SCH ×2 (14:03→17:38)
[2023-02-13] MEDS ORDERED: cefTRIAXone\\ROCEPHIN 1 GM in Sodium Chloride 0.9% 100 ML IVPB SCH (15:00)
[2023-02-13] MEDS: QUEtiapine 25 MG TAB PO SCH (22:28)
[2023-02-13] MEDS: Acetaminophen 325 MG TAB PO PRN (22:30)
[2023-02-14 05:10] LABS: #Eosinphils 0.1 thou/uL (0.0-0.7); #Monocytes 0.8 thou/uL (0.11-0.59); #Neutrophils 6.9 thou/uL (1.40-6.50); %Basophils 0.3 % (0.0-1.0); %Eosinophils 0.6 % (0.0-10.0); %Lymphocytes 23.3 % (21.0-51.0); %Monocytes 7.4 % (0.0-10.0); %Neutrophils 67.8 % (42.0-75.0); Hematocrit 31.4 % (42.0-52.0); Hemoglobin 10.6 g/dL (14.0-18.0); Mean Corpuscular HGB CONC 33.8 g/dL (32.0-36.0); Mean Platelet Volume 10.2 fL (7.4-10.4); Platelet Count 215 10x3/uL (130-400); RBC Distribution Width 14.2 % (11.5-14.5); Red Blood Cell (RBC) Count 3.53 mill/uL (4.70-6.10); White Blood Cell (WBC) Count 10.2 10x3/uL (4.8-10.8)
[2023-02-14 05:34] LABS: Anion Gap 7 mmol/L (10-20); BUN (Urea Nitrogen) Less than 4 mg/dL (8.9-20.6); Calc. Creatinine Clearance 82 mL/min (70-130); Calcium 8.7 mg/dL (7.8-10.44); Carbon Dioxide 25 mmol/L (22-29); Chloride 108 mmol/L (98-107); Estimated GFR 110; Glucose 98 mg/dL (70-105); Potassium 3.3 mmol/L (3.5-5.1); Sodium 137 mmol/L (136-145)
[2023-02-14] MEDS ORDERED: Dextrose 5% in Water 1,000 ML IV PRN (07:28)
[2023-02-14] MEDS ORDERED: Dextrose 50% Abboject 50 ML SYRINGE SLOW IVP PRN (07:28)
[2023-02-14] MEDS ORDERED: Glucagon 1 MG/ML KIT IM PRN (07:28)
[2023-02-14] MEDS ORDERED: Potassium Chloride 20 MEQ TAB PO SCH ×2 (07:30→08:00)
[2023-02-14] MEDS: Gabapentin 400 MG CAP PO SCH ×2 (07:46→21:08)
[2023-02-14] MEDS: Heparin 5,000 UNITS/ML VIAL SC SCH ×2 (07:47→21:09)
[2023-02-14] MEDS: Pantoprazole 40 MG VIAL IVP SCH ×2 (07:47→21:09)
[2023-02-14] MEDS ORDERED: Insulin Glargine 30 UNITS/0.3 ML VIAL SC SCH ×2 (09:00→11:45)
[2023-02-14] MEDS: HumaLOG 300 UNITS/3 ML VIAL SC PRN (12:44)
[2023-02-14 14:08] LABS: Potassium 3.5 mmol/L (3.5-5.1)
[2023-02-14] MEDS ORDERED: HumaLOG 300 UNITS/3 ML VIAL SC PRN (17:55)
[2023-02-14] MEDS: QUEtiapine 25 MG TAB PO SCH (21:09)
[2023-02-15 07:32] LABS: #Eosinphils 0.3 thou/uL (0.0-0.7); #Monocytes 0.7 thou/uL (0.11-0.59); #Neutrophils 6.2 thou/uL (1.40-6.50); %Basophils 0.4 % (0.0-1.0); %Lymphocytes 26.4 % (21.0-51.0); %Monocytes 6.7 % (0.0-10.0); Hematocrit 32.5 % (42.0-52.0); Hemoglobin 10.8 g/dL (14.0-18.0); Mean Corpuscular HGB CONC 33.2 g/dL (32.0-36.0); Mean Corpuscular Hemoglobin 29.7 pg (27.0-31.0); Mean Corpuscular Volume 89.3 fl (78.0-98.0); Mean Platelet Volume 10.3 fL (7.4-10.4); Platelet Count 215 10x3/uL (130-400); Red Blood Cell (RBC) Count 3.64 mill/uL (4.70-6.10); White Blood Cell (WBC) Count 9.8 10x3/uL (4.8-10.8)
[2023-02-15 08:00] LABS: Anion Gap 11 mmol/L (10-20); BUN (Urea Nitrogen) Less than 4 mg/dL (8.9-20.6); Calc. Creatinine Clearance 104 mL/min (70-130); Calcium 8.7 mg/dL (7.8-10.44); Carbon Dioxide 27 mmol/L (22-29); Chloride 104 mmol/L (98-107); Estimated GFR 118; Glucose 75 mg/dL (70-105); Magnesium 1.9 mg/dL (1.6-2.6); Potassium 3.5 mmol/L (3.5-5.1); Sodium 138 mmol/L (136-145)
[2023-02-15] MEDS: Insulin Glargine 30 UNITS/0.3 ML VIAL SC SCH (09:03)
[2023-02-15] MEDS: Gabapentin 400 MG CAP PO SCH ×2 (09:03→20:10)
[2023-02-15] MEDS: Pantoprazole 40 MG VIAL IVP SCH (09:03)
[2023-02-15] MEDS: Heparin 5,000 UNITS/ML VIAL SC SCH ×2 (09:03→20:11)
[2023-02-15] MEDS ORDERED: Magnesium 2 GM/50 ML(in water) 2 GM in Premix 1 BAG IVPB SCH (09:15)
[2023-02-15] MEDS ORDERED: Potassium Chloride 20 MEQ TAB PO SCH (09:15)
[2023-02-15 17:32] LABS: Potassium 4.1 mmol/L (3.5-5.1)
[2023-02-15] MEDS: QUEtiapine 25 MG TAB PO SCH (20:10)
[2023-02-15] MEDS: Acetaminophen 325 MG TAB PO PRN (20:14)
[2023-02-16 00:17] VITALS: TEMP 98.3
[2023-02-16 07:55] LABS: Magnesium 2.5 mg/dL (1.6-2.6)
[2023-02-16 08:06] VITALS: BP 159/87
[2023-02-16] MEDS ORDERED: Losartan 25 MG TAB PO SCH (09:00)
[2023-02-16] MEDS: Insulin Glargine 30 UNITS/0.3 ML VIAL SC SCH (09:09)
[2023-02-16] MEDS: Gabapentin 400 MG CAP PO SCH (09:09)
[2023-02-16] MEDS: Heparin 5,000 UNITS/ML VIAL SC SCH (09:11)
[2023-02-16] MEDS: HumaLOG 300 UNITS/3 ML VIAL SC PRN (12:44)
== END 2023-02-16 12:52 | disposition home or self-care (01) | DRG 637 ==
LOC: ERS 13:36 → IMCU/EMU 17:34 → T4-B 02-13 16:17
PROVIDERS: ADMIT Internal Medicine; ATTEND Internal Medicine
DX: E11.10 Type 2 diabetes mellitus with ketoacidosis without coma (principal); E43 Unspecified severe protein-calorie malnutrition; E87.1 Hypo-osmolality and hyponatremia; N17.9 Acute kidney failure, unspecified; N39.0 Urinary tract infection, site not specified; Z68.1 Body mass index [BMI] 19.9 or less, adult; E78.5 Hyperlipidemia, unspecified; F41.9 Anxiety disorder, unspecified; E11.40 Type 2 diabetes mellitus with diabetic neuropathy, unspecified; F17.210 Nicotine dependence, cigarettes, uncomplicated; N18.2 Chronic kidney disease, stage 2 (mild); I11.0 Hypertensive heart disease with heart failure; E87.6 Hypokalemia; R62.7 Adult failure to thrive; Z79.4 Long term (current) use of insulin; Z79.899 Other long term (current) drug therapy; Z91.148 Patient's other noncompliance with medication regimen for other reason; Z98.890 Other specified postprocedural states; Z79.84 Long term (current) use of oral hypoglycemic drugs; Z79.51 Long term (current) use of inhaled steroids
CPT/HCPCS: 36415; 36416; 71045; 74177; 80048; 80053; 81001; 82010; 82805; 83036; 83605; 83690; 83735; 84100; 84484; 85025; 87040; 87086; 93005; 94760; 96361; 96365; 96366; 96367; 96368; 96375; C9113; J0696; J1644; J1815; J2405; J3475; J3480; Q9967

== ENCOUNTER 2023-02-26 16:21 | Inpatient (IN) | payer OTHER ==
[2023-02-26 17:14] LABS: #Basophils 0.1 thou/uL (0.0-0.2); #Eosinphils 0.1 thou/uL (0.0-0.7); #Monocytes 0.4 thou/uL (0.11-0.59); #Neutrophils 6.7 thou/uL (1.40-6.50); %Basophils 0.9 % (0.0-1.0); %Eosinophils 0.5 % (0.0-10.0); %Lymphocytes 22.5 % (21.0-51.0); %Monocytes 3.9 % (0.0-10.0); %Neutrophils 71.9 % (42.0-75.0); Hematocrit 38.2 % (42.0-52.0); Hemoglobin 12.7 g/dL (14.0-18.0); Mean Corpuscular HGB CONC 33.2 g/dL (32.0-36.0); Mean Corpuscular Hemoglobin 30.1 pg (27.0-31.0); Mean Corpuscular Volume 90.5 fl (78.0-98.0); Mean Platelet Volume 9.8 fL (7.4-10.4); Platelet Count 366 10x3/uL (130-400); RBC Distribution Width 14.1 % (11.5-14.5); Red Blood Cell (RBC) Count 4.22 mill/uL (4.70-6.10); White Blood Cell (WBC) Count 9.3 10x3/uL (4.8-10.8)
[2023-02-26 17:23] LABS: Bacteria/HPF None Seen HPF (None Seen); Bilirubin Negative (Negative); Blood, Urine Negative (Negative); CAUTI Indications for Culture < 2yrs of age; Clarity Clear (Clear); Glucose, Urine (Dipstick) Greater than 1000 mg/dL (Negative); Ketone, Urine Greater than 150 mg/dL (Negative); Leukocyte Negative Leu/uL (Negative); Nitrite Negative (Negative); Protein, Urine (Dipstick) Negative (Neg-Trace); RBC/HPF 0-3 HPF (0-3); Specific Gravity, Urine 1.027 (1.002-1.036); Squamous Epithelial None Seen HPF (0-3); Urobilinogen Normal mg/dL (Less than 2); WBC/HPF 0-3 HPF (0-3)
[2023-02-26 17:25] LABS: Urine Culture Reflex Yes Yes
[2023-02-26 17:34] LABS: Base Excess -9.9 mEq/L (-2.0 to +3.0); Calcium, Ionized (venous) 1.21 mmol/L (1.16-1.32); Chloride (VBG) 90 mmol/L (98-106); Hematocrit-VBG 40 % (42.0-52.0); Hemoglobin (Hb) 13.5 g/dL (13.1-17.2); Potassium (VBG) 4.63 mmol/L (3.70-5.30); Sodium 131 mmol/L (133-146); pH (venous) 7.276 (7.32-7.43)
[2023-02-26 17:41] LABS: Phosphorus 3.2 mg/dL (2.3-4.7)
[2023-02-26 17:43] LABS: ALT (SGPT) 11 U/L (8-55); AST (SGOT) 9 U/L (5-34); Alkaline Phosphatase 85 U/L (40-110); Anion Gap 28 mmol/L (10-20); BUN (Urea Nitrogen) 14 mg/dL (8.9-20.6); Bilirubin, Total 0.5 mg/dL (0.2-1.2); Calc. Creatinine Clearance 0 mL/min (70-130); Calcium 9.1 mg/dL (7.8-10.44); Carbon Dioxide 16 mmol/L (22-29); Chloride 91 mmol/L (98-107); Estimated GFR 58; Globulin 3.2 g/dL (2.4-3.5); Lipase 9 U/L (8-78); Magnesium 1.7 mg/dL (1.6-2.6); Protein, Total 7.2 g/dL (6.0-8.3); Sodium 130 mmol/L (136-145)
[2023-02-26 17:46] LABS: Troponin I Less than 0.010 ng/mL (< 0.028)
[2023-02-26 17:48] LABS: Glucose 537 mg/dL (70-105)
[2023-02-26] MEDS ORDERED: INSULIN REGULAR IN 0.9 % NACL 100 UNITS/100 ML BAG ONE (18:22)
[2023-02-26] MEDS ORDERED: Ondansetron PF 4 MG/2 ML Vial ONE (18:26)
[2023-02-26] MEDS ORDERED: NS 0.9% w/ 20 MEQ KCL 1,000 ML IV PRN ×2 (18:47)
[2023-02-26] MEDS ORDERED: Ondansetron PF 4 MG/2 ML Vial IVP PRN (18:47)
[2023-02-26] MEDS ORDERED: Dextrose 5 %-0.45 % NaCl 1,000 ML IV PRN (18:47)
[2023-02-26] MEDS ORDERED: Electrolyte Replacement Protocol 1 EACH IVPB SCH (18:47)
[2023-02-26] MEDS ORDERED: Acetaminophen 325 MG TAB PO PRN (18:47)
[2023-02-26] MEDS ORDERED: Dextrose 50% Abboject 50 ML SYRINGE SLOW IVP PRN (18:47)
[2023-02-26] MEDS ORDERED: Sodium Chloride 0.9% 1,000 ML IV PRN ×3 (18:47)
[2023-02-26] MEDS ORDERED: HUMULIN R 100 UNITS in Sodium Chloride 0.9% 100 ML IVPB SCH (19:00)
[2023-02-26] MEDS ORDERED: Nicotine 21 MG PATCH TD PRN (19:07)
[2023-02-26] MEDS ORDERED: cefTRIAXone\\ROCEPHIN 1 GM in Sodium Chloride 0.9% 100 ML IVPB SCH (20:00)
[2023-02-26] MEDS ORDERED: QUEtiapine 25 MG TAB PO SCH (21:00)
[2023-02-26] MEDS ORDERED: Magnesium 2 GM/50 ML(in water) 2 GM in Premix 1 BAG IVPB SCH (21:00)
[2023-02-26] MEDS ORDERED: Ondansetron PF 4 MG/2 ML Vial IVP SCH (21:00)
[2023-02-26] MEDS ORDERED: Pantoprazole 40 MG VIAL IVP SCH (21:00)
[2023-02-26] MEDS: Gabapentin 300 MG CAP PO SCH (21:13)
[2023-02-26] MEDS: D5 1/2 NS w/20 mEq KCL 1,000 ML IV PRN (22:06)
[2023-02-26] MEDS: Sucralfate 1 GM TAB PO SCH (22:13)
[2023-02-26 22:33] LABS: Anion Gap 20 mmol/L (10-20); BUN (Urea Nitrogen) 11 mg/dL (8.9-20.6); Calc. Creatinine Clearance 0 mL/min (70-130); Calcium 8.9 mg/dL (7.8-10.44); Carbon Dioxide 20 mmol/L (22-29); Chloride 101 mmol/L (98-107); Estimated GFR 85; Glucose 258 mg/dL (70-105); Potassium 3.5 mmol/L (3.5-5.1); Sodium 137 mmol/L (136-145)
[2023-02-26] MEDS: Potassium Chloride 20 MEQ in Premix 1 BAG IVPB SCH (23:50)
[2023-02-27] MEDS: Potassium Chloride 20 MEQ in Premix 1 BAG IVPB SCH (01:54)
[2023-02-27] MEDS: D5 1/2 NS w/20 mEq KCL 1,000 ML IV PRN (02:24)
[2023-02-27 03:01] LABS: #Basophils 0.1 thou/uL (0.0-0.2); #Eosinphils 0.1 thou/uL (0.0-0.7); #Monocytes 0.6 thou/uL (0.11-0.59); #Neutrophils 9.9 thou/uL (1.40-6.50); %Basophils 0.5 % (0.0-1.0); %Lymphocytes 18.8 % (21.0-51.0); %Monocytes 4.5 % (0.0-10.0); %Neutrophils 74.9 % (42.0-75.0); Hematocrit 30.5 % (42.0-52.0); Hemoglobin 10.6 g/dL (14.0-18.0); Mean Corpuscular HGB CONC 34.8 g/dL (32.0-36.0); Mean Corpuscular Hemoglobin 30.5 pg (27.0-31.0); Mean Platelet Volume 9.5 fL (7.4-10.4); Platelet Count 307 10x3/uL (130-400); RBC Distribution Width 14.1 % (11.5-14.5); Red Blood Cell (RBC) Count 3.48 mill/uL (4.70-6.10); White Blood Cell (WBC) Count 13.2 10x3/uL (4.8-10.8)
[2023-02-27 03:11] LABS: Mean Corpuscular Volume 87.6 fl (78.0-98.0)
[2023-02-27 03:24] LABS: Anion Gap 12 mmol/L (10-20); BUN (Urea Nitrogen) 9 mg/dL (8.9-20.6); Calc. Creatinine Clearance 53 mL/min (70-130); Calcium 8.1 mg/dL (7.8-10.44); Carbon Dioxide 21 mmol/L (22-29); Chloride 104 mmol/L (98-107); Estimated GFR 87; Glucose 198 mg/dL (70-105); Potassium 4.5 mmol/L (3.5-5.1); Sodium 132 mmol/L (136-145)
[2023-02-27] MEDS ORDERED: Glucagon 1 MG/ML KIT IM PRN (04:04)
[2023-02-27] MEDS ORDERED: HumaLOG 300 UNITS/3 ML VIAL SC PRN (04:04)
[2023-02-27] MEDS ORDERED: Dextrose 5% in Water 1,000 ML IV PRN (04:04)
[2023-02-27] MEDS ORDERED: Dextrose 50% Abboject 50 ML SYRINGE SLOW IVP PRN (04:04)
[2023-02-27] MEDS ORDERED: Insulin Glargine 30 UNITS/0.3 ML VIAL SC SCH (04:15)
[2023-02-27 04:24] LABS: Magnesium 1.8 mg/dL (1.6-2.6); Phosphorus Less than 1.0 mg/dL (2.3-4.7)
[2023-02-27] MEDS: Sodium Chloride 0.9% 1,000 ML IV SCH ×2 (04:26→15:58)
[2023-02-27] MEDS ORDERED: Sodium Chloride 0.9% 500 ML IV SCH (05:30)
[2023-02-27] MEDS ORDERED: Magnesium 2 GM/50 ML(in water) 2 GM in Premix 1 BAG IVPB SCH (06:00)
[2023-02-27] MEDS ORDERED: Potassium Phosphate 30 MMOL in Sodium Chloride 0.9% 250 ML 250 ML IVPB SCH (06:00)
[2023-02-27 09:08] LABS: Anion Gap 11 mmol/L (10-20); BUN (Urea Nitrogen) 6 mg/dL (8.9-20.6); Calc. Creatinine Clearance 75 mL/min (70-130); Calcium 8.4 mg/dL (7.8-10.44); Carbon Dioxide 22 mmol/L (22-29); Chloride 107 mmol/L (98-107); Estimated GFR 108; Glucose 84 mg/dL (70-105); Magnesium 2.5 mg/dL (1.6-2.6); Phosphorus 2.8 mg/dL (2.3-4.7); Potassium 4.5 mmol/L (3.5-5.1); Sodium 135 mmol/L (136-145)
[2023-02-27] MEDS: Sucralfate 1 GM TAB PO SCH ×3 (09:41→19:23)
[2023-02-27] MEDS: Gabapentin 300 MG CAP PO SCH (09:42)
[2023-02-27 10:09] VITALS: BMI 16.9
[2023-02-27] MEDS ORDERED: Sodium Chloride 0.9% 1,000 ML IV SCH (11:06)
[2023-02-27 14:04] VITALS: TEMP 98.1
[2023-02-27 14:10] VITALS: BP 104/66
[2023-02-28] MEDS ORDERED: Insulin Glargine 30 UNITS/0.3 ML VIAL SC SCH (09:00)
== END 2023-02-27 20:00 | DRG 637 ==
LOC: ERS 16:21 → ERHOLD 18:20 → IMCU/EMU 20:32
PROVIDERS: ADMIT Family Medicine; ATTEND Family Medicine
DX: E11.10 Type 2 diabetes mellitus with ketoacidosis without coma (principal); E43 Unspecified severe protein-calorie malnutrition; N17.9 Acute kidney failure, unspecified; N39.0 Urinary tract infection, site not specified; Z68.1 Body mass index [BMI] 19.9 or less, adult; F41.9 Anxiety disorder, unspecified; E11.40 Type 2 diabetes mellitus with diabetic neuropathy, unspecified; I10 Essential (primary) hypertension; E78.5 Hyperlipidemia, unspecified; G47.00 Insomnia, unspecified; F17.210 Nicotine dependence, cigarettes, uncomplicated; K31.84 Gastroparesis; E11.43 Type 2 diabetes mellitus with diabetic autonomic (poly)neuropathy; R53.81 Other malaise; Z79.899 Other long term (current) drug therapy; Z98.890 Other specified postprocedural states; Z79.51 Long term (current) use of inhaled steroids
CPT/HCPCS: 36415; 36416; 71045; 74018; 80048; 80053; 81001; 82010; 82805; 83690; 83735; 84100; 84484; 85025; 87086; 93005; 96361; 96365; 96375; 96376; C9113; J0696; J1650; J1815; J2405; J3475; J3480; J3490; J7050

== ENCOUNTER 2024-01-15 14:49 | Emergency (ER) | payer OTHER ==
[2024-01-15 16:20] LABS: #Basophils 0.08 10x3/uL (0.0-0.2); %Eosinophils 4.5 % (0.0-10.0); %Lymphocytes 35.5 % (21.0-51.0); %Monocytes 8.4 % (0.0-10.0); %Neutrophils 50.3 % (42.0-75.0); Hematocrit 38.2 % (42.0-52.0); Hemoglobin 13.1 g/dL (14.0-18.0); Mean Corpuscular HGB CONC 34.3 g/dL (32.0-36.0); Mean Corpuscular Hemoglobin 29.2 pg (27.0-31.0); Mean Corpuscular Volume 85.1 fL (78.0-98.0); Mean Platelet Volume 11.1 fL (7.4-10.4); Platelet Count 208 10x3/uL (130-400); RBC Distribution Width 13.9 % (11.5-14.5); Red Blood Cell (RBC) Count 4.49 mill/uL (4.70-6.10)
[2024-01-15 16:46] LABS: Phosphorus 3.4 mg/dL (2.3-4.7)
[2024-01-15 16:48] LABS: ALT (SGPT) 21 U/L (8-55); AST (SGOT) 13 U/L (5-34); Albumin 3.9 g/dL (3.5-5.0); Alkaline Phosphatase 76 U/L (40-110); Anion Gap 13 mmol/L (10-20); BUN (Urea Nitrogen) 29 mg/dL (8.9-20.6); Bilirubin, Total 0.8 mg/dL (0.2-1.2); Calc. Creatinine Clearance 0 mL/min (70-130); Calcium 9.1 mg/dL (7.8-10.44); Carbon Dioxide 26 mmol/L (22-29); Chloride 100 mmol/L (98-107); Estimated GFR 68; Globulin 3.2 g/dL (2.4-3.5); Glucose 250 mg/dL (70-105); Magnesium 1.9 mg/dL (1.6-2.6); Potassium 3.7 mmol/L (3.5-5.1); Protein, Total 7.1 g/dL (6.0-8.3); Sodium 135 mmol/L (136-145)
[2024-01-15 16:50] LABS: Troponin I Less than 0.010 ng/mL (< 0.028)
[2024-01-15 16:55] LABS: Bacteria/HPF None Seen HPF (None Seen); Bilirubin Negative (Negative); Blood, Urine Negative (Negative); CAUTI Indications for Culture Dysuria,urgency,freq; Clarity Clear (Clear); Glucose, Urine (Dipstick) 200 mg/dL (Negative); Ketone, Urine Negative (Negative); Leukocyte Negative Leu/uL (Negative); Nitrite Negative (Negative); Protein, Urine (Dipstick) Negative (Neg-Trace); RBC/HPF 0-3 HPF (0-3); Specific Gravity, Urine 1.007 (1.002-1.036); Squamous Epithelial None Seen HPF (0-3); Urobilinogen Normal mg/dL (Less than 2); WBC/HPF 0-3 HPF (0-3); pH, Urine 5.5 (5.0-9.0)
[2024-01-15 16:57] LABS: Urine Culture Reflex No No
== END 2024-01-15 21:05 | disposition home or self-care (01) ==
LOC: ERS 14:49
DX: E11.65 Type 2 diabetes mellitus with hyperglycemia (principal); E11.40 Type 2 diabetes mellitus with diabetic neuropathy, unspecified; I10 Essential (primary) hypertension; F17.210 Nicotine dependence, cigarettes, uncomplicated; Z79.4 Long term (current) use of insulin; Z79.84 Long term (current) use of oral hypoglycemic drugs; Z79.899 Other long term (current) drug therapy
CPT/HCPCS: 36415; 71045; 80053; 81001; 82010; 83735; 84100; 84484; 85025; 93005

== ENCOUNTER 2024-05-08 14:47 | Inpatient (IN) | payer OTHER ==
[2024-05-08] MEDS ORDERED: Bisacodyl 10 MG SUPP PR PRN (15:19)
[2024-05-08] MEDS ORDERED: Senokot S 8.6-50 MG TAB PO PRN (15:19)
[2024-05-08] MEDS ORDERED: Electrolyte Replacement Protocol 1 EACH IVPB PRN (15:19)
[2024-05-08] MEDS ORDERED: Acetaminophen 650 MG Suppository PR PRN (15:19)
[2024-05-08] MEDS ORDERED: Dextrose 50% Abboject 50 ML SYRINGE SLOW IVP PRN (15:19)
[2024-05-08] MEDS ORDERED: Dextrose 5 %-0.45 % NaCl 1,000 ML IV PRN (15:19)
[2024-05-08] MEDS ORDERED: NS 0.9% w/ 20 MEQ KCL 1,000 ML IV PRN ×2 (15:19)
[2024-05-08] MEDS ORDERED: Calcium Carbonate 500 MG ChewTAB PO PRN (15:19)
[2024-05-08] MEDS ORDERED: Bisacodyl 5 MG TAB PO PRN (15:19)
[2024-05-08] MEDS ORDERED: Sodium Chloride 0.9% 1,000 ML IV PRN ×4 (15:19)
[2024-05-08 15:29] LABS: #Basophils 0.03 10x3/uL (0.0-0.2); #Eosinophils Less than 0.03 10x3/uL (0.0-0.7); %Basophils 0.1 % (0.0-1.0); %Lymphocytes 6.1 % (21.0-51.0); %Monocytes 8.2 % (0.0-10.0); %Neutrophils 85.1 % (42.0-75.0); Hematocrit 38.1 % (42.0-52.0); Hemoglobin 12.1 g/dL (14.0-18.0); Mean Corpuscular HGB CONC 31.8 g/dL (32.0-36.0); Mean Corpuscular Volume 91.4 fL (78.0-98.0); Mean Platelet Volume 11.1 fL (7.4-10.4); Platelet Count 247 10x3/uL (130-400); Red Blood Cell (RBC) Count 4.17 mill/uL (4.70-6.10)
[2024-05-08] MEDS ORDERED: INSULIN REGULAR IN 0.9 % NACL 100 ML IVPB SCH (15:30)
[2024-05-08 16:07] LABS: Anion Gap 27 mmol/L (10-20); BUN (Urea Nitrogen) 30 mg/dL (8.9-20.6); Calc. Creatinine Clearance 0 mL/min (70-130); Calcium 8.4 mg/dL (7.8-10.44); Carbon Dioxide 12 mmol/L (22-29); Chloride 109 mmol/L (98-107); Estimated GFR 45; Glucose 476 mg/dL (70-105); Magnesium 2.3 mg/dL (1.6-2.6); Potassium 4.4 mmol/L (3.5-5.1); Sodium 144 mmol/L (136-145)
[2024-05-08 16:34] VITALS: BMI 19.9
[2024-05-08 16:41] LABS: Phosphorus 3.3 mg/dL (2.3-4.7)
[2024-05-08] MEDS: Pantoprazole 40 MG VIAL IVP SCH (16:50)
[2024-05-08 18:23] LABS: Influenza A by NAA Not Detected (NotDetected); Influenza B by NAA Not Detected (NotDetected); RSV by NAA Not Detected (NotDetected); SARS-CoV-2 NAA Rapid Test Not Detected (NotDetected)
[2024-05-08] MEDS: D5 1/2 NS w/20 mEq KCL 1,000 ML IV PRN (19:47)
[2024-05-08 21:46] LABS: Anion Gap 12 mmol/L (10-20); BUN (Urea Nitrogen) 21 mg/dL (8.9-20.6); Calc. Creatinine Clearance 52 mL/min (70-130); Calcium 8.3 mg/dL (7.8-10.44); Carbon Dioxide 21 mmol/L (22-29); Chloride 115 mmol/L (98-107); Estimated GFR 59; Glucose 252 mg/dL (70-105); Potassium 4.2 mmol/L (3.5-5.1); Sodium 144 mmol/L (136-145)
[2024-05-08 23:51] LABS: Anion Gap 12 mmol/L (10-20); BUN (Urea Nitrogen) 18 mg/dL (8.9-20.6); Calc. Creatinine Clearance 60 mL/min (70-130); Calcium 8.1 mg/dL (7.8-10.44); Carbon Dioxide 22 mmol/L (22-29); Chloride 115 mmol/L (98-107); Estimated GFR 70; Glucose 210 mg/dL (70-105); Sodium 145 mmol/L (136-145)
[2024-05-09] MEDS ORDERED: Dextrose 5% in Water 1,000 ML IV PRN (01:21)
[2024-05-09] MEDS ORDERED: Dextrose 5 %-0.45 % NaCl 1000 ml Bag ONE (01:21)
[2024-05-09] MEDS ORDERED: Glucagon 1 MG/ML KIT IM PRN (01:21)
[2024-05-09 03:59] LABS: #Basophils 0.04 10x3/uL (0.0-0.2); #Eosinophils Less than 0.03 10x3/uL (0.0-0.7); %Basophils 0.2 % (0.0-1.0); %Eosinophils 0.1 % (0.0-10.0); %Lymphocytes 7.2 % (21.0-51.0); %Neutrophils 85.9 % (42.0-75.0); Hematocrit 36.1 % (42.0-52.0); Hemoglobin 11.8 g/dL (14.0-18.0); Mean Corpuscular HGB CONC 32.7 g/dL (32.0-36.0); Mean Corpuscular Volume 88.7 fL (78.0-98.0); Mean Platelet Volume 10.6 fL (7.4-10.4); Platelet Count 229 10x3/uL (130-400); RBC Distribution Width 14.1 % (11.5-14.5); Red Blood Cell (RBC) Count 4.07 mill/uL (4.70-6.10)
[2024-05-09 04:11] LABS: Hemoglobin A1c 10.4 % (4.0-6.0)
[2024-05-09 04:49] LABS: Anion Gap 11 mmol/L (10-20); BUN (Urea Nitrogen) 16 mg/dL (8.9-20.6); Calc. Creatinine Clearance 65 mL/min (70-130); Calcium 8.3 mg/dL (7.8-10.44); Carbon Dioxide 23 mmol/L (22-29); Chloride 114 mmol/L (98-107); Estimated GFR 77; Glucose 184 mg/dL (70-105); Magnesium 2.2 mg/dL (1.6-2.6); Potassium 4.5 mmol/L (3.5-5.1); Sodium 143 mmol/L (136-145)
[2024-05-09 05:42] LABS: Amphetamine Not Detected (NotDetected); Barbiturates Screen Not Detected (NotDetected); Benzodiazepine Screen Not Detected (NotDetected); Cocaine Metabolite Screen Not Detected (NotDetected); Methadone Not Detected (NotDetected); Methamphetamine Not Detected (NotDetected); Opiate Screen Not Detected (NotDetected); Oxycodone Screen Not Detected (NotDetected); Phencyclidine (PCP) Not Detected (NotDetected); THC/Cannabinoid Screen Not Detected (NotDetected); Tricyclic Screen Not Detected (NotDetected)
[2024-05-09] MEDS: Insulin Glargine 30 UNITS/0.3 ML VIAL SC SCH (07:59)
[2024-05-09] MEDS: Pantoprazole 40 MG VIAL IVP SCH (08:00)
[2024-05-09] MEDS: Insulin Lispro 100 UNIT/ML 10 ML VIAL SC PRN ×2 (10:46→23:09)
[2024-05-09] MEDS: Ondansetron PF 4 MG/2 ML Vial IVP PRN (11:47)
[2024-05-09 13:13] LABS: Troponin I 0.068 ng/mL (< 0.028)
[2024-05-09 13:21] LABS: Free T4 (Free Thyroxine) 1.11 ng/dL (0.70-1.48)
[2024-05-09 17:25] LABS: Troponin I 0.067 ng/mL (< 0.028)
[2024-05-09] MEDS: QUEtiapine 25 MG TAB PO SCH (21:26)
[2024-05-09] MEDS: Gabapentin 400 MG CAP PO SCH (21:26)
[2024-05-09] MEDS: tiZANidine HCl 4 MG TAB PO SCH (21:26)
[2024-05-09] MEDS: Acetaminophen 325 MG TAB PO PRN (21:30)
[2024-05-09] MEDS: Benzocaine/Menthol 1 LOZ LOZ PO PRN (23:09)
[2024-05-10 03:50] LABS: #Basophils 0.05 10x3/uL (0.0-0.2); %Basophils 0.3 % (0.0-1.0); %Eosinophils 0.9 % (0.0-10.0); %Lymphocytes 20.4 % (21.0-51.0); %Monocytes 6.1 % (0.0-10.0); %Neutrophils 71.9 % (42.0-75.0); Hemoglobin 11.5 g/dL (14.0-18.0); Mean Corpuscular HGB CONC 32.9 g/dL (32.0-36.0); Mean Corpuscular Hemoglobin 29.1 pg (27.0-31.0); Mean Corpuscular Volume 88.6 fL (78.0-98.0); Mean Platelet Volume 11.2 fL (7.4-10.4); Platelet Count 200 10x3/uL (130-400); RBC Distribution Width 14.4 % (11.5-14.5); Red Blood Cell (RBC) Count 3.95 mill/uL (4.70-6.10)
[2024-05-10 04:06] LABS: Anion Gap 11 mmol/L (10-20); BUN (Urea Nitrogen) 13 mg/dL (8.9-20.6); Calc. Creatinine Clearance 71 mL/min (70-130); Calcium 8.2 mg/dL (7.8-10.44); Carbon Dioxide 28 mmol/L (22-29); Chloride 106 mmol/L (98-107); Estimated GFR 87; Glucose 186 mg/dL (70-105); Magnesium 2.2 mg/dL (1.6-2.6); Potassium 3.7 mmol/L (3.5-5.1); Sodium 141 mmol/L (136-145)
[2024-05-10] MEDS ORDERED: Pantoprazole 40 MG DR.TAB PO SCH (09:00)
[2024-05-10] MEDS ORDERED: FLU (Fluarix Triv) TS24-25(6MOS UP)/PF 45 MCG/0.5 ML Syringe IM ONE (09:00)
[2024-05-10] MEDS: Losartan 25 MG TAB PO SCH (09:18)
[2024-05-10] MEDS: Oxybutynin 5 MG TAB PO SCH (09:18)
[2024-05-10] MEDS: Pantoprazole 40 MG DR.TAB PO SCH (09:18)
[2024-05-10] MEDS: Insulin Glargine 30 UNITS/0.3 ML VIAL SC SCH (09:19)
[2024-05-10] MEDS: Doxycycline 100 MG in Sodium Chloride 0.9% 100 ML IVPB SCH (09:28)
[2024-05-10] MEDS: Metoprolol Succinate XL 25 MG ER.TAB PO SCH ×2 (12:54→16:15)
[2024-05-10] MEDS: Metoprolol Tartrate 5 MG (5 mL) VIAL IVP SCH (15:13)
[2024-05-11 04:23] LABS: #Basophils 0.03 10x3/uL (0.0-0.2); %Basophils 0.3 % (0.0-1.0); %Eosinophils 2.9 % (0.0-10.0); %Lymphocytes 37.3 % (21.0-51.0); %Monocytes 8.1 % (0.0-10.0); %Neutrophils 51.2 % (42.0-75.0); Hematocrit 36.9 % (42.0-52.0); Hemoglobin 11.9 g/dL (14.0-18.0); Mean Corpuscular HGB CONC 32.2 g/dL (32.0-36.0); Mean Corpuscular Hemoglobin 29.2 pg (27.0-31.0); Mean Corpuscular Volume 90.7 fL (78.0-98.0); Mean Platelet Volume 11.1 fL (7.4-10.4); Platelet Count 179 10x3/uL (130-400); RBC Distribution Width 14.4 % (11.5-14.5); Red Blood Cell (RBC) Count 4.07 mill/uL (4.70-6.10)
[2024-05-11 05:31] LABS: Anion Gap 8 mmol/L (10-20); BUN (Urea Nitrogen) 14 mg/dL (8.9-20.6); Calc. Creatinine Clearance 80 mL/min (70-130); Calcium 8.8 mg/dL (7.8-10.44); Carbon Dioxide 32 mmol/L (22-29); Chloride 106 mmol/L (98-107); Estimated GFR 98; Glucose 52 mg/dL (70-105); Magnesium 2.1 mg/dL (1.6-2.6); Potassium 3.2 mmol/L (3.5-5.1); Sodium 143 mmol/L (136-145)
[2024-05-11] MEDS: Potassium Bicarbonate/Cit Ac 20 MEQ TAB PO SCH (06:18)
[2024-05-11] MEDS: Metoprolol Succinate XL 50 MG ER.TAB PO SCH (08:51)
[2024-05-11] MEDS: Apixaban 5 MG TAB PO SCH (08:52)
[2024-05-11] MEDS ORDERED: Metoprolol Succinate XL 25 MG ER.TAB PO SCH (09:00)
[2024-05-11] MEDS: cefTRIAXone\\ROCEPHIN 1 GM in Sodium Chloride 0.9% 100 ML IVPB SCH (10:59)
[2024-05-11 12:26] VITALS: BP 115/69; TEMP 98
== END 2024-05-11 17:45 | disposition home or self-care (01) | DRG 638 ==
LOC: ERS 14:47 → SUATTDRO 14:47 → IMCU/EMU 16:24 → T4-B 05-09 11:23 → PCU 05-09 12:42
PROVIDERS: ADMIT Family Medicine; ATTEND Internal Medicine
DX: E11.10 Type 2 diabetes mellitus with ketoacidosis without coma (principal); I47.10 Supraventricular tachycardia, unspecified; N17.9 Acute kidney failure, unspecified; I48.92 Unspecified atrial flutter; E11.40 Type 2 diabetes mellitus with diabetic neuropathy, unspecified; I10 Essential (primary) hypertension; E78.5 Hyperlipidemia, unspecified; F41.9 Anxiety disorder, unspecified; R94.31 Abnormal electrocardiogram [ECG] [EKG]; F17.210 Nicotine dependence, cigarettes, uncomplicated; J06.9 Acute upper respiratory infection, unspecified; R91.8 Other nonspecific abnormal finding of lung field; Z91.148 Patient's other noncompliance with medication regimen for other reason
CPT/HCPCS: 0241U; 36415; 36416; 80048; 80306; 83036; 83735; 84100; 84439; 84443; 84481; 84484; 85025; 87040; 93005; 93010; 93306; 96365; J0696; J1815; J2405; J2470; J3480; J7042

== ENCOUNTER 2025-02-10 18:25 | Emergency (ER) | payer MEDICAID, OTHER ==
[2025-02-10 19:01] LABS: #Basophils 0.09 10x3/uL (0.0-0.2); #Eosinophils 0.10 10x3/uL (0.0-0.7); #Monocytes 0.76 10x3/uL (0.11-0.59); #Neutrophils 7.16 10x3/uL (1.40-6.50); %Basophils 0.9 % (0.0-1.0); %Eosinophils 1.0 % (0.0-10.0); %Lymphocytes 17.4 % (21.0-51.0); %Monocytes 7.7 % (0.0-10.0); %Neutrophils 72.7 % (42.0-75.0); Hematocrit 26.4 % (42.0-52.0); Hemoglobin 8.6 g/dL (14.0-18.0); Mean Corpuscular Hemoglobin 29.0 pg (27.0-31.0); Mean Corpuscular Volume 88.9 fL (78.0-98.0); Platelet Count 494 10x3/uL (130-400); Red Blood Cell (RBC) Count 2.97 mill/uL (4.70-6.10); White Blood Cell (WBC) Count 9.85 10x3/uL (4.8-10.8)
[2025-02-10] MEDS ORDERED: Ondansetron PF 4 MG/2 ML Vial ONE (19:04)
[2025-02-10 19:29] LABS: ALT (SGPT) 81 U/L (Less than 45); AST (SGOT) 65 U/L (11-34); Albumin 3.1 g/dL (3.1-4.5); Alkaline Phosphatase 77 U/L (40-110); Anion Gap 13 mmol/L (10-20); BUN (Urea Nitrogen) 30 mg/dL (8.9-20.6); Bilirubin, Total 0.6 mg/dL (0.3-1.2); Calc. Creatinine Clearance 0 mL/min (70-130); Calcium 9.1 mg/dL (7.8-10.44); Carbon Dioxide 28 mmol/L (22-29); Chloride 96 mmol/L (98-107); Globulin 3.3 g/dL (2.4-3.5); Glucose 340 mg/dL (70-105); Magnesium 1.6 mg/dL (1.6-2.6); Potassium 4.5 mmol/L (3.5-5.1); Sodium 132 mmol/L (136-145)
[2025-02-10 19:35] LABS: Bacteria/HPF None Seen HPF (None Seen); CAUTI Indications for Culture Alt mental st,lethar; Glucose, Urine (Dipstick) Greater than 1000 mg/dL (Negative); Leukocyte 75 Leu/uL (Negative); Protein, Urine (Dipstick) Negative (Neg-Trace); RBC/HPF 0-3 HPF (0-3); Specific Gravity, Urine 1.018 (1.002-1.036)
[2025-02-10 19:38] LABS: Urine Culture Reflex Yes Yes
[2025-02-10 19:41] LABS: Actual Bicarbonate (HCO3v) 27.8 mEq/L (22-28); Base Excess 3.8 mEq/L (-2.0 to +3.0); Calcium, Ionized (venous) 1.10 mmol/L (1.16-1.32); Chloride (VBG) 94 mmol/L (98-106); Hematocrit-VBG 29 % (42.0-52.0); Hemoglobin (Hb) 10.0 g/dL (13.1-17.2); Potassium (VBG) 4.42 mmol/L (3.70-5.30); Sodium 129 mmol/L (133-146)
== END 2025-02-10 23:30 | disposition home or self-care (01) ==
LOC: ERS 18:25
DX: E11.65 Type 2 diabetes mellitus with hyperglycemia (principal); K29.70 Gastritis, unspecified, without bleeding; E11.40 Type 2 diabetes mellitus with diabetic neuropathy, unspecified; I10 Essential (primary) hypertension; F17.210 Nicotine dependence, cigarettes, uncomplicated
CPT/HCPCS: 36415; 36416; 80053; 81001; 82010; 82805; 83735; 85025; 87077; 87086; 93005; 96361; 96374; J1815; J2405

== ENCOUNTER 2025-02-17 15:36 | Inpatient (IN) | payer OTHER, MEDICAID ==
[~2025-02-17 15:36] MED LIST: Iopamidol-370 76% 500 ML MDV (1 ML CHARGE) ONE
[2025-02-17 16:23] LABS: Base Excess -23.2 mEq/L (-2.0 to +3.0); Calcium, Ionized (venous) 1.21 mmol/L (1.16-1.32); Chloride (VBG) 88 mmol/L (98-106); Hematocrit-VBG 33 % (42.0-52.0); Hemoglobin (Hb) 11.3 g/dL (13.1-17.2); Potassium (VBG) 5.66 mmol/L (3.70-5.30); Sodium 128 mmol/L (133-146)
[2025-02-17 16:26] LABS: #Basophils 0.03 10x3/uL (0.0-0.2); #Eosinophils Less than 0.03 10x3/uL (0.0-0.7); #Monocytes 0.81 10x3/uL (0.11-0.59); #Neutrophils 6.80 10x3/uL (1.40-6.50); %Basophils 0.3 % (0.0-1.0); %Eosinophils 0.0 % (0.0-10.0); %Lymphocytes 12.2 % (21.0-51.0); %Monocytes 9.3 % (0.0-10.0); %Neutrophils 77.7 % (42.0-75.0); Hematocrit 32.8 % (42.0-52.0); Hemoglobin 10.1 g/dL (14.0-18.0); Mean Corpuscular Hemoglobin 29.1 pg (27.0-31.0); Mean Corpuscular Volume 94.5 fL (78.0-98.0); Platelet Count 265 10x3/uL (130-400); Red Blood Cell (RBC) Count 3.47 mill/uL (4.70-6.10); White Blood Cell (WBC) Count 8.75 10x3/uL (4.8-10.8)
[2025-02-17 16:36] LABS: CAUTI Indications for Culture Dysuria,urgency,freq; Glucose, Urine (Dipstick) Greater than 1000 mg/dL (Negative); Leukocyte Negative Leu/uL (Negative); Protein, Urine (Dipstick) 20 mg/dL (Neg-Trace); RBC/HPF 0-3 HPF (0-3); Specific Gravity, Urine 1.014 (1.002-1.036); WBC/HPF 0-3 HPF (0-3)
[2025-02-17 16:39] LABS: Bacteria/HPF 1+ HPF (None Seen)
[2025-02-17 16:40] LABS: Urine Culture Reflex No No
[2025-02-17 17:00] LABS: ALT (SGPT) 23 U/L (Less than 45); AST (SGOT) 9 U/L (11-34); Albumin 3.4 g/dL (3.1-4.5); Alkaline Phosphatase 92 U/L (40-110); BUN (Urea Nitrogen) 30 mg/dL (8.9-20.6); Bilirubin, Total 0.4 mg/dL (0.3-1.2); Calc. Creatinine Clearance 0 mL/min (70-130); Calcium 8.4 mg/dL (7.8-10.44); Carbon Dioxide Less than 8 mmol/L (22-29); Chloride 88 mmol/L (98-107); Globulin 3.7 g/dL (2.4-3.5); Glucose 682 mg/dL (70-105); Lipase 6 U/L (8-78); Magnesium 1.9 mg/dL (1.6-2.6); Potassium 5.7 mmol/L (3.5-5.1); Sodium 125 mmol/L (136-145)
[2025-02-17] MEDS ORDERED: Famotidine/PF 20 mg/2ml Vial ONE (17:50)
[2025-02-17] MEDS ORDERED: Pantoprazole 40 MG VIAL ONE (17:50)
[2025-02-17] MEDS ORDERED: Electrolyte Replacement Protocol 1 EACH IVPB PRN (17:51)
[2025-02-17] MEDS ORDERED: INSULIN REGULAR IN 0.9 % NACL 100 ML ONE (17:51)
[2025-02-17] MEDS: Heparin 5,000 UNITS/ML VIAL SC SCH (20:06)
[2025-02-17] MEDS: Magnesium 2 GM/50 ML(in water) 2 GM in Premix 1 BAG IVPB SCH (20:06)
[2025-02-17 22:47] LABS: Anion Gap 19 mmol/L (10-20); BUN (Urea Nitrogen) 21 mg/dL (8.9-20.6); Calc. Creatinine Clearance 47 mL/min (70-130); Calcium 7.3 mg/dL (7.8-10.44); Carbon Dioxide 10 mmol/L (22-29); Chloride 107 mmol/L (98-107); Glucose 308 mg/dL (70-105); Magnesium 1.7 mg/dL (1.6-2.6); Potassium 4.4 mmol/L (3.5-5.1); Sodium 132 mmol/L (136-145)
[2025-02-17] MEDS: D5 1/2 NS w/20 mEq KCL 1,000 ML IV PRN (23:54)
[2025-02-17] MEDS: NS 0.9% w/ 20 MEQ KCL 1,000 ML IV PRN ×2 (23:54→23:55)
[2025-02-18 01:32] LABS: Anion Gap 12 mmol/L (10-20); BUN (Urea Nitrogen) 21 mg/dL (8.9-20.6); Calc. Creatinine Clearance 49 mL/min (70-130); Calcium 7.1 mg/dL (7.8-10.44); Carbon Dioxide 15 mmol/L (22-29); Chloride 109 mmol/L (98-107); Glucose 226 mg/dL (70-105); Potassium 4.1 mmol/L (3.5-5.1); Sodium 132 mmol/L (136-145)
[2025-02-18] MEDS: INSULIN REGULAR IN 0.9 % NACL 100 ML IVPB SCH (02:58)
[2025-02-18 03:49] LABS: #Basophils 0.03 10x3/uL (0.0-0.2); #Eosinophils 0.11 10x3/uL (0.0-0.7); #Monocytes 0.48 10x3/uL (0.11-0.59); #Neutrophils 3.85 10x3/uL (1.40-6.50); %Basophils 0.5 % (0.0-1.0); %Eosinophils 1.8 % (0.0-10.0); %Lymphocytes 26.4 % (21.0-51.0); %Monocytes 7.9 % (0.0-10.0); %Neutrophils 63.2 % (42.0-75.0); Hematocrit 26.5 % (42.0-52.0); Hemoglobin 8.8 g/dL (14.0-18.0); Mean Corpuscular Hemoglobin 29.5 pg (27.0-31.0); Mean Corpuscular Volume 88.9 fL (78.0-98.0); Platelet Count 244 10x3/uL (130-400); Red Blood Cell (RBC) Count 2.98 mill/uL (4.70-6.10); White Blood Cell (WBC) Count 6.09 10x3/uL (4.8-10.8)
[2025-02-18 04:04] LABS: Anion Gap 10 mmol/L (10-20); BUN (Urea Nitrogen) 18 mg/dL (8.9-20.6); Calc. Creatinine Clearance 49 mL/min (70-130); Calcium 7.4 mg/dL (7.8-10.44); Carbon Dioxide 19 mmol/L (22-29); Chloride 110 mmol/L (98-107); Glucose 210 mg/dL (70-105); Magnesium 1.6 mg/dL (1.6-2.6); Potassium 4.0 mmol/L (3.5-5.1); Sodium 135 mmol/L (136-145)
[2025-02-18 05:21] LABS: Anion Gap 11 mmol/L (10-20); BUN (Urea Nitrogen) 18 mg/dL (8.9-20.6); Calc. Creatinine Clearance 52 mL/min (70-130); Calcium 7.4 mg/dL (7.8-10.44); Carbon Dioxide 18 mmol/L (22-29); Chloride 109 mmol/L (98-107); Glucose 167 mg/dL (70-105); Potassium 3.8 mmol/L (3.5-5.1); Sodium 134 mmol/L (136-145)
[2025-02-18] MEDS: Dextrose 50% Abboject 50 ML SYRINGE SLOW IVP PRN (05:23)
[2025-02-18] MEDS ORDERED: Norepinephrine 8 MG/0.9% NS 250 ML IVPB SCH (06:45)
[2025-02-18] MEDS: Magnesium 2 GM/50 ML(in water) 2 GM in Premix 1 BAG IVPB SCH (07:38)
[2025-02-18] MEDS: Pantoprazole 40 MG VIAL IVP SCH (07:40)
[2025-02-18] MEDS: Norepinephrine 8 MG/0.9% NS 250 ML ONE (07:59)
[2025-02-18] MEDS ORDERED: Pantoprazole 40 MG VIAL IVP SCH (09:00)
[2025-02-18] MEDS ORDERED: Pantoprazole 40 MG DR.TAB PO SCH (09:00)
[2025-02-18] MEDS ORDERED: Dextrose 50% Abboject 50 ML SYRINGE SLOW IVP PRN (10:02)
[2025-02-18] MEDS ORDERED: Glucagon 1 MG/ML KIT IM PRN (10:02)
[2025-02-18] MEDS: Insulin Glargine 30 UNITS/0.3 ML VIAL SC SCH (21:18)
[2025-02-18] MEDS: Ondansetron PF 4 MG/2 ML Vial IVP PRN (21:18)
[2025-02-19] MEDS: Prochlorperazine 10 MG/2 ML VIAL SLOW IVP PRN (01:12)
[2025-02-19 05:16] LABS: #Basophils 0.03 10x3/uL (0.0-0.2); #Eosinophils 0.13 10x3/uL (0.0-0.7); #Monocytes 0.47 10x3/uL (0.11-0.59); #Neutrophils 3.61 10x3/uL (1.40-6.50); %Basophils 0.5 % (0.0-1.0); %Eosinophils 2.0 % (0.0-10.0); %Lymphocytes 33.8 % (21.0-51.0); %Monocytes 7.3 % (0.0-10.0); %Neutrophils 56.2 % (42.0-75.0); Hematocrit 26.3 % (42.0-52.0); Hemoglobin 8.4 g/dL (14.0-18.0); Mean Corpuscular Hemoglobin 28.8 pg (27.0-31.0); Mean Corpuscular Volume 90.1 fL (78.0-98.0); Platelet Count 216 10x3/uL (130-400); Red Blood Cell (RBC) Count 2.92 mill/uL (4.70-6.10); White Blood Cell (WBC) Count 6.42 10x3/uL (4.8-10.8)
[2025-02-19 05:37] LABS: Anion Gap 9 mmol/L (10-20); BUN (Urea Nitrogen) 10 mg/dL (8.9-20.6); Calc. Creatinine Clearance 61 mL/min (70-130); Calcium 7.5 mg/dL (7.8-10.44); Carbon Dioxide 21 mmol/L (22-29); Chloride 106 mmol/L (98-107); Glucose 176 mg/dL (70-105); Magnesium 2.1 mg/dL (1.6-2.6); Potassium 3.9 mmol/L (3.5-5.1); Sodium 132 mmol/L (136-145)
[2025-02-19] MEDS: Acetaminophen 325 MG TAB PO PRN (23:56)
[2025-02-20 07:55] LABS: Actual Bicarbonate (HCO3v) 6.2 mEq/L (22-28)
[2025-02-20] MEDS: Metoclopramide HCl 10 MG (2 mL) VIAL IVP SCH (10:25)
[2025-02-20 12:26] LABS: #Basophils 0.03 10x3/uL (0.0-0.2); #Eosinophils 0.23 10x3/uL (0.0-0.7); #Monocytes 0.48 10x3/uL (0.11-0.59); #Neutrophils 3.06 10x3/uL (1.40-6.50); %Basophils 0.5 % (0.0-1.0); %Eosinophils 4.0 % (0.0-10.0); %Lymphocytes 33.2 % (21.0-51.0); %Monocytes 8.4 % (0.0-10.0); %Neutrophils 53.7 % (42.0-75.0); Hematocrit 27.8 % (42.0-52.0); Hemoglobin 9.0 g/dL (14.0-18.0); Mean Corpuscular Hemoglobin 28.8 pg (27.0-31.0); Mean Corpuscular Volume 89.1 fL (78.0-98.0); Platelet Count 190 10x3/uL (130-400); Red Blood Cell (RBC) Count 3.12 mill/uL (4.70-6.10); White Blood Cell (WBC) Count 5.70 10x3/uL (4.8-10.8)
[2025-02-20 12:51] LABS: Anion Gap 6 mmol/L (10-20); BUN (Urea Nitrogen) 11 mg/dL (8.9-20.6); Calc. Creatinine Clearance 75 mL/min (70-130); Calcium 8.1 mg/dL (7.8-10.44); Carbon Dioxide 27 mmol/L (22-29); Chloride 103 mmol/L (98-107); Glucose 141 mg/dL (70-105); Potassium 3.7 mmol/L (3.5-5.1); Sodium 132 mmol/L (136-145)
[2025-02-20] MEDS ORDERED: PHOS-NAK 1 PKT PACK PO PRN (13:00)
[2025-02-20] MEDS ORDERED: Potassium Chloride 20 MEQ in Premix 1 BAG IVPB PRN (13:00)
[2025-02-20] MEDS ORDERED: Magnesium 2 GM/50 ML(in water) 2 GM in Premix 1 BAG IVPB PRN (13:00)
[2025-02-20] MEDS ORDERED: Albuterol 200 PUFF (6.7GM INHALER) INH PRN (15:00)
[2025-02-20] MEDS: Gabapentin 300 MG CAP PO SCH (16:44)
[2025-02-20] MEDS ORDERED: VANCOMYCIN IVPB PRN (17:17)
[2025-02-20] MEDS: Vancomycin 1.25 GM / NS 250 ML VIAL-2-BAG IVPB SCH ×2 (19:03→19:42)
[2025-02-20] MEDS: Mometasone 100 MCG HFA INHALER (RT USE) INH SCH (20:37)
[2025-02-20] MEDS ORDERED: Vancomycin 1 GM in Sodium Chloride 0.9% 250 ML 250 ML IVPB SCH (21:00)
[2025-02-20] MEDS: Pantoprazole 40 MG DR.TAB PO SCH (21:03)
[2025-02-20] MEDS: PNEUMOC 20-VAL CONJ-DIP CRM/PF 0.5 ML SYRINGE IM ONE (21:04)
[2025-02-20 21:20] LABS: Bacteria/HPF None Seen HPF (None Seen); CAUTI Indications for Culture Dysuria,urgency,freq; Glucose, Urine (Dipstick) 150 mg/dL (Negative); Leukocyte Negative Leu/uL (Negative); Protein, Urine (Dipstick) Negative (Neg-Trace); RBC/HPF 0-3 HPF (0-3); Specific Gravity, Urine 1.009 (1.002-1.036); WBC/HPF 0-3 HPF (0-3)
[2025-02-20 21:27] LABS: Urine Culture Reflex No No
[2025-02-21 05:27] LABS: #Basophils 0.04 10x3/uL (0.0-0.2); #Eosinophils 0.26 10x3/uL (0.0-0.7); #Monocytes 0.49 10x3/uL (0.11-0.59); #Neutrophils 2.51 10x3/uL (1.40-6.50); %Basophils 0.7 % (0.0-1.0); %Eosinophils 4.8 % (0.0-10.0); %Lymphocytes 39.1 % (21.0-51.0); %Monocytes 9.0 % (0.0-10.0); %Neutrophils 46.4 % (42.0-75.0); Hematocrit 26.9 % (42.0-52.0); Hemoglobin 8.7 g/dL (14.0-18.0); Mean Corpuscular Hemoglobin 29.1 pg (27.0-31.0); Mean Corpuscular Volume 90.0 fL (78.0-98.0); Platelet Count 190 10x3/uL (130-400); Red Blood Cell (RBC) Count 2.99 mill/uL (4.70-6.10); White Blood Cell (WBC) Count 5.42 10x3/uL (4.8-10.8)
[2025-02-21] MEDS: Vancomycin 1 GM in Premix 1 BAG IVPB SCH (05:35)
[2025-02-21 05:41] LABS: Anion Gap 9 mmol/L (10-20); BUN (Urea Nitrogen) 13 mg/dL (8.9-20.6); Calc. Creatinine Clearance 0 mL/min (70-130); Calcium 8.2 mg/dL (7.8-10.44); Carbon Dioxide 30 mmol/L (22-29); Chloride 99 mmol/L (98-107); Glucose 225 mg/dL (70-105); Potassium 3.6 mmol/L (3.5-5.1); Sodium 134 mmol/L (136-145)
[2025-02-21 05:43] LABS: Vancomycin, Random 14.3 ug/mL (See Comment)
[2025-02-21] MEDS ORDERED: Losartan 25 MG TAB PO SCH (09:00)
[2025-02-21] MEDS ORDERED: Pantoprazole 40 MG DR.TAB PO SCH (09:00)
[2025-02-21] MEDS: Rosuvastatin 10 MG TAB PO SCH (09:11)
[2025-02-21 13:37] VITALS: BMI 18.3
[2025-02-21 14:57] LABS: Campy jejuni + coli by PCR Negative (Negative); STEC Shiga Toxin 1+2 Negative (Negative); Salmonella spp. by PCR Negative (Negative); Shigella spp + EIEC by PCR Negative (Negative)
[2025-02-22 05:27] LABS: Anion Gap 9 mmol/L (10-20); BUN (Urea Nitrogen) 11 mg/dL (8.9-20.6); Calc. Creatinine Clearance 68 mL/min (70-130); Calcium 8.4 mg/dL (7.8-10.44); Carbon Dioxide 32 mmol/L (22-29); Chloride 99 mmol/L (98-107); Glucose 167 mg/dL (70-105); Potassium 3.9 mmol/L (3.5-5.1); Sodium 136 mmol/L (136-145)
[2025-02-22] MEDS: Insulin Glargine 30 UNITS/0.3 ML VIAL SC SCH (20:00)
[2025-02-23 08:31] LABS: Anion Gap 12 mmol/L (10-20); BUN (Urea Nitrogen) 12 mg/dL (8.9-20.6); Calc. Creatinine Clearance 59 mL/min (70-130); Calcium 9.0 mg/dL (7.8-10.44); Carbon Dioxide 34 mmol/L (22-29); Chloride 94 mmol/L (98-107); Glucose 206 mg/dL (70-105); Potassium 4.5 mmol/L (3.5-5.1); Sodium 135 mmol/L (136-145)
[2025-02-23] MEDS: Insulin Glargine 30 UNITS/0.3 ML VIAL SC SCH (09:31)
[2025-02-23 15:07] VITALS: BMI 18.3
[2025-02-24 05:26] LABS: #Basophils 0.06 10x3/uL (0.0-0.2); #Eosinophils 0.55 10x3/uL (0.0-0.7); #Monocytes 0.74 10x3/uL (0.11-0.59); #Neutrophils 3.76 10x3/uL (1.40-6.50); %Basophils 0.8 % (0.0-1.0); %Eosinophils 7.2 % (0.0-10.0); %Lymphocytes 32.9 % (21.0-51.0); %Monocytes 9.7 % (0.0-10.0); %Neutrophils 49.3 % (42.0-75.0); Hematocrit 26.5 % (42.0-52.0); Hemoglobin 8.6 g/dL (14.0-18.0); Mean Corpuscular Hemoglobin 29.2 pg (27.0-31.0); Mean Corpuscular Volume 89.8 fL (78.0-98.0); Platelet Count 213 10x3/uL (130-400); Red Blood Cell (RBC) Count 2.95 mill/uL (4.70-6.10); White Blood Cell (WBC) Count 7.63 10x3/uL (4.8-10.8)
[2025-02-24 05:42] LABS: Vancomycin, Random 21.5 ug/mL (See Comment)
[2025-02-24 05:52] LABS: Anion Gap 10 mmol/L (10-20); BUN (Urea Nitrogen) 20 mg/dL (8.9-20.6); Calc. Creatinine Clearance 54 mL/min (70-130); Calcium 9.2 mg/dL (7.8-10.44); Carbon Dioxide 35 mmol/L (22-29); Chloride 91 mmol/L (98-107); Glucose 414 mg/dL (70-105); Potassium 4.7 mmol/L (3.5-5.1); Sodium 131 mmol/L (136-145)
[2025-02-24] MEDS: Insulin Glargine 30 UNITS/0.3 ML VIAL SC SCH (07:56)
[2025-02-24] MEDS: Diphenoxylate HCl/Atropine Tablet PO PRN (21:10)
[2025-02-25 06:07] LABS: Vancomycin, Random 11.0 ug/mL (See Comment)
[2025-02-25 06:12] LABS: Anion Gap 10 mmol/L (10-20); BUN (Urea Nitrogen) 17 mg/dL (8.9-20.6); Calc. Creatinine Clearance 63 mL/min (70-130); Calcium 8.7 mg/dL (7.8-10.44); Carbon Dioxide 30 mmol/L (22-29); Chloride 103 mmol/L (98-107); Glucose 127 mg/dL (70-105); Potassium 4.2 mmol/L (3.5-5.1); Sodium 139 mmol/L (136-145)
[2025-02-25] MEDS: Vancomycin HCl 1.25 GM in Sodium Chloride 0.9% 250 ML 250 ML IVPB SCH (08:21)
[2025-02-26 06:01] LABS: Anion Gap 10 mmol/L (10-20); BUN (Urea Nitrogen) 16 mg/dL (8.9-20.6); Calc. Creatinine Clearance 67 mL/min (70-130); Calcium 8.6 mg/dL (7.8-10.44); Carbon Dioxide 27 mmol/L (22-29); Chloride 105 mmol/L (98-107); Glucose 98 mg/dL (70-105); Potassium 4.1 mmol/L (3.5-5.1); Sodium 138 mmol/L (136-145)
[2025-02-26] MEDS: Insulin Glargine 30 UNITS/0.3 ML VIAL SC SCH (09:39)
[2025-02-26] MEDS ORDERED: DC Electrolyte Protocol FS SCH (13:07)
[2025-02-26] MEDS ORDERED: GUAIFENESIN SF SOLN 200 MG/10 ML UDCUP PO PRN (13:08)
[2025-02-27 05:50] LABS: #Basophils 0.06 10x3/uL (0.0-0.2); #Eosinophils 0.27 10x3/uL (0.0-0.7); #Monocytes 1.02 10x3/uL (0.11-0.59); #Neutrophils 3.94 10x3/uL (1.40-6.50); %Basophils 0.8 % (0.0-1.0); %Eosinophils 3.6 % (0.0-10.0); %Lymphocytes 29.4 % (21.0-51.0); %Monocytes 13.6 % (0.0-10.0); %Neutrophils 52.3 % (42.0-75.0); Hematocrit 26.1 % (42.0-52.0); Hemoglobin 8.1 g/dL (14.0-18.0); Mean Corpuscular Hemoglobin 29.0 pg (27.0-31.0); Mean Corpuscular Volume 93.5 fL (78.0-98.0); Platelet Count 258 10x3/uL (130-400); Red Blood Cell (RBC) Count 2.79 mill/uL (4.70-6.10); White Blood Cell (WBC) Count 7.52 10x3/uL (4.8-10.8)
[2025-02-27 06:05] LABS: Anion Gap 8 mmol/L (10-20); BUN (Urea Nitrogen) 18 mg/dL (8.9-20.6); Calc. Creatinine Clearance 65 mL/min (70-130); Calcium 8.6 mg/dL (7.8-10.44); Carbon Dioxide 28 mmol/L (22-29); Chloride 106 mmol/L (98-107); Glucose 182 mg/dL (70-105); Potassium 4.1 mmol/L (3.5-5.1); Sodium 138 mmol/L (136-145); Vancomycin, Random 12.6 ug/mL (See Comment)
[2025-02-27 06:09] LABS: CRP, High Sensitivity at Bryan 0.32 mg/dL (< or = 0.5); Magnesium 1.9 mg/dL (1.6-2.6)
[2025-02-28 05:41] LABS: #Basophils 0.07 10x3/uL (0.0-0.2); #Eosinophils 0.26 10x3/uL (0.0-0.7); #Monocytes 0.79 10x3/uL (0.11-0.59); #Neutrophils 3.05 10x3/uL (1.40-6.50); %Basophils 1.1 % (0.0-1.0); %Eosinophils 4.2 % (0.0-10.0); %Lymphocytes 32.4 % (21.0-51.0); %Monocytes 12.8 % (0.0-10.0); %Neutrophils 49.3 % (42.0-75.0); Hematocrit 25.9 % (42.0-52.0); Hemoglobin 7.9 g/dL (14.0-18.0); Mean Corpuscular Hemoglobin 29.0 pg (27.0-31.0); Mean Corpuscular Volume 95.2 fL (78.0-98.0); Platelet Count 258 10x3/uL (130-400); Red Blood Cell (RBC) Count 2.72 mill/uL (4.70-6.10); White Blood Cell (WBC) Count 6.18 10x3/uL (4.8-10.8)
[2025-02-28 06:03] LABS: Anion Gap 6 mmol/L (10-20); BUN (Urea Nitrogen) 18 mg/dL (8.9-20.6); Calc. Creatinine Clearance 68 mL/min (70-130); Calcium 8.6 mg/dL (7.8-10.44); Carbon Dioxide 32 mmol/L (22-29); Chloride 104 mmol/L (98-107); Glucose 246 mg/dL (70-105); Potassium 4.7 mmol/L (3.5-5.1); Sodium 137 mmol/L (136-145)
[2025-02-28] MEDS: Insulin Glargine 30 UNITS/0.3 ML VIAL SC SCH (08:07)
[2025-03-01 05:32] LABS: Anion Gap 12 mmol/L (10-20); BUN (Urea Nitrogen) 18 mg/dL (8.9-20.6); Calc. Creatinine Clearance 74 mL/min (70-130); Calcium 8.7 mg/dL (7.8-10.44); Carbon Dioxide 27 mmol/L (22-29); Chloride 102 mmol/L (98-107); Glucose 194 mg/dL (70-105); Potassium 4.2 mmol/L (3.5-5.1); Sodium 137 mmol/L (136-145)
[2025-03-01 20:54] VITALS: BP 94/58; TEMP 98.3
== END 2025-03-01 21:23 | DRG 637 ==
LOC: ERS 15:36 → ERHOLD 17:42 → IMCU/EMU 19:46 → T4-B 02-19 13:57
PROVIDERS: ADMIT Internal Medicine; ATTEND Internal Medicine
DX: E11.10 Type 2 diabetes mellitus with ketoacidosis without coma (principal); J69.0 Pneumonitis due to inhalation of food and vomit; R78.81 Bacteremia; N17.9 Acute kidney failure, unspecified; E87.1 Hypo-osmolality and hyponatremia; E11.43 Type 2 diabetes mellitus with diabetic autonomic (poly)neuropathy; K31.84 Gastroparesis; B95.7 Other staphylococcus as the cause of diseases classified elsewhere; K31.89 Other diseases of stomach and duodenum; K29.70 Gastritis, unspecified, without bleeding; K76.0 Fatty (change of) liver, not elsewhere classified; K59.00 Constipation, unspecified; I10 Essential (primary) hypertension; E11.40 Type 2 diabetes mellitus with diabetic neuropathy, unspecified; F41.9 Anxiety disorder, unspecified; F17.210 Nicotine dependence, cigarettes, uncomplicated; I07.1 Rheumatic tricuspid insufficiency; Z71.6 Tobacco abuse counseling; Z79.899 Other long term (current) drug therapy
CPT/HCPCS: 36415; 36416; 71045; 74177; 80048; 80053; 80202; 81001; 82010; 82805; 83036; 83605; 83690; 83735; 84100; 84145; 84311; 84484; 85025; 86141; 87040; 87070; 87077; 87081; 87086; 87149; 87205; 87324; 87449; 87505; 93005; 93306; 94640; 94664; 96361; 96365; 96375; J0692; J0780; J1308; J1335; J1644; J1815; J2185; J2405; J2470; J2543; J2765; J3373; J3475; J3480; J7030; J7050; J7120; J7999; Q9967